=== PATIENT | female | born 2000 | race Caucasian/White ===

== ENCOUNTER 2021-03-21 21:01 | Emergency (ER) | payer OTHER, SELFPAY ==
--- NOTE | ~2021-03-21 | CT_ITS ---
EXAMINATION: CT brain wo con DATE: 03/21/2021 23:24 INDICATION: Headache. TECHNIQUE: Computed tomography (CT) of the head was performed without intravenous contrast. The mA wa s adjusted according to patient size. Iterative reconstruction technique was employed. The dose-lengt h product was 605.33 mGy-cm. COMPARISON: None FINDINGS: There is no intracranial hemorrhage, acute infarction, or abnormal intracranial mass lesion . The ventricles are normal in size. There is mild mucosal thickening in the ethmoid sinuses. The mas toid air cells are normal. The orbits are normal. IMPRESSION: 1. Normal brain. Reviewed, dictated and finalized at location B. [employer] IMPRESSION: 1. Normal brain.
[2021-03-21 21:15] VITALS: BP 145/106; PULSE 89; O2SAT 97
--- NOTE | 2021-03-21 21:18 | ED.HA ---
HPI - Headache General Chief Complaint: Headache Stated Complaint: migraine 7-8 days Time Seen by Provider: 03/21/21 21:04 Source: patient Mode of arrival: ambulatory Limitations: no limitations History of Present Illness HPI Narrative: 20-year-old woman comes in today complaining of 7 or 8 days is severe headache, top of her head. She states it is throbbing in nature. It is getting progressively worse. She denies photophobia, visual changes, nausea, vomiting, visual changes, head injuries, syncope, chest pain, recent cough or cold symptoms, sore throat. She states that she delivered a on 03/09 at [facility] in [place]. Was a vaginal without complication. Gestation was complicated by GDM managed by diet. She lives at home with her grandfather who has no symptoms. She states that she had a similar headache 1 or 2 years ago for which she did not seek out and it resolved spontaneously. MD elicited complaint: headache Onset (ago): day(s) (7-8) Onset description: gradually Location: diffuse and parietal Severity: severe Quality & Timing: throbbing Exacerbating factors: none Relieving factors: nothing Context: occurred at rest Associated symptoms: none Related Data Home Medications Medication Instructions Recorded Confirmed No Home Medications 03/21/21 03/21/21 Allergies Allergy/AdvReac Type Severity Reaction Status Date / Time No Known Allergies Allergy Verified 03/21/21 21:20 Review of Systems Review of Systems: All systems reviewed & are unremarkable except as noted in HPI and below Constitutional: Constitutional: Denies chills and Denies fever(s) Eyes: Eyes: Denies change in vision and Denies photophobia ENT: Denies nasal congestion and Denies sore throat Cardiovascular: Cardiovascular: Denies chest pain and Denies radiating jaw, neck or arm pain Respiratory: Respiratory: Denies cough and Denies dyspnea Gastrointestinal: Gastrointestinal: Denies abdominal pain, Denies nausea and Denies vomiting Musculoskeletal: Musculoskeletal: Denies back pain, Denies arthralgias and Denies joint swelling Integumentary/Breasts: Skin/Breast: Denies pruritus, Denies erythema and Denies rash Neurologic: Reports as per HPI, Denies vertigo, Denies dizziness, Denies syncope, Reports headache(s), Denies focal weakness, Denies numbness and Denies weakness [facility] Social History Social History (Updated 03/21/21 @ 21:49 by Dashawn Batista MD) Smoking status: Never smoker Alcohol intake: never Substance use type: marijuana Living arrangements: with family Exam Const: General: healthy appearing and alert Orientation/consciousness: patient oriented x3 Limitations: no limitations Other: Moderate acute distress. HENMT: Head: normal to inspection Ears: external ears normal, TM's normal bilaterally and EAC's normal General nose exam: Normal nares present Face and sinus: normal facial exam Mouth: Yes moist mucous membranes abnormal Throat: posterior oropharynx normal Eyes: Conjunctivae: conjunctivae normal Pupils: Equal, round and reactive pupils present EOM: EOMs intact bilaterally Neck: Neck: no meningeal signs Resp: Effort & Inspection: normal respiratory effort and not labored Auscultation: clear to auscultation bilaterally, no rales, no rhonchi and no wheezes Cardio: Rate: regular rate Rhythm: regular rhythm Heart sounds: no murmurs GI: GI Palp: Yes Soft to palpation, No Tenderness to palpation present (GI) and No Guarding due to palpation present (GI) Skin: General skin exam: normal color, no jaundice and no pallor Rashes: no rashes Neuro: General: patient oriented x3, moves all extremities, no focal motor deficits and CN's II-XI intact bilaterally Speech: normal speech Gait exam (Neuro): Normal gait present Other: Normal Romberg and bilateral [id number] testing. Extrem: General: normal to inspection and no clubbing, cyanosis or edema Psych: Appearance: grossly normal and w
[2021-03-21 21:22] VITALS: BP 145/106; PULSE 84; RESP 21; TEMP 36.3; O2SAT 96
[2021-03-21 21:30] VITALS: BP 142/103; PULSE 73; O2SAT 97
[2021-03-21 21:45] VITALS: BP 157/110; PULSE 71; O2SAT 98
[2021-03-21 22:15] LABS: Carboxyhemoglobin 3.4 % (0-1.5); HCO3 ABG 22.4 mmol/L (23-29); Methemoglobin ABG 0.1 % (0-1.5); Oxygen Content ABG 20.9 %vol (16.0-22.0); Oxyhemoglobin 94.6 % (94-100); PCO2 ABG 33.7 mmHg (35-45); PO2 ABG 108.9 mmHg (80-90); Reduced Hemoglobin 1.9 % (0-1.5); Total Hemoglobin 15.6 g/dL (12.0-18.0); pH ABG 7.44 (7.35-7.45)
[2021-03-21] MEDS: SODIUM CHLORIDE 0.9% IV 1,000 ML 999 ML IV CONT (22:25)
[2021-03-21 22:30] LABS: Basophils Absolute Auto 0.13 K/mm3 (0.00-0.10); Basophils Percent Auto 1.7 % (0.0-1.0); Eosinophils Absolute Auto 0.57 K/mm3 (0.02-0.50); Eosinophils Percent Auto 7.3 % (1.0-6.0); Hematocrit 49.5 % (35.0-49.0); Hemoglobin 16.2 g/dL (12.0-15.0); Immature Granulocyte Absolute 0.01 K/mm3 (0.00-0.00); Immature Granulocyte Percent A 0.1 % (0.0-0.0); Lymphocytes Absolute Auto 2.42 K/mm3 (1.10-4.50); Lymphocytes Percent Auto 30.9 % (18.0-42.0); Mean Corpuscular HGB Conc 32.7 g/dL (32.0-36.0); Mean Corpuscular Hemoglobin 29.3 pg (27.0-31.0); Mean Corpuscular Volume 89.7 fL (78.0-102.0); Mean Platelet Volume 10.9 fl (9.2-11.8); Monocytes Absolute Auto 0.46 K/mm3 (0.10-0.90); Monocytes Percent Auto 5.9 % (2.0-11.0); Neutrophils Absolute Auto 4.2 K/mm3 (1.7-7.2); Neutrophils Percent Auto 54.1 % (50.0-70.0); Platelet Count Result 245 K/mm3 (150-420); Red Blood Count 5.52 M/mm3 (4.20-5.40); Red Cell Distribution Width 12.1 % (11.6-14.4); White Blood Count 7.8 K/mm3 (4.8-10.8)
[2021-03-21 22:34] LABS: Device ROOM AIR; Modified Allen's Test Pass; Site Drawn LEFT RADIAL
[2021-03-21 22:42] LABS: Alanine Aminotransferase 15 U/L (14-59); Albumin Level 3.6 g/dL (3.4-5.0); Alkaline Phosphatase 110 U/L (50-130); Anion Gap 14 mmol/L (8-16); Aspartate Amino Transferase 13 U/L (15-37); Bilirubin,Total 0.3 mg/dL (0.00-1.00); Blood Urea Nitrogen 12 mg/dL (7-18); CRP < 0.5 mg/dL (0.0-0.9); Calcium 9.4 mg/dL (8.5-10.1); Carbon Dioxide 24 mmol/L (21-32); Chloride 103 mmol/L (98-108); Estimated Glomerular Filt Rate > 60; Glucose 87 mg/dL (70-99); Osmolality Calculated 290 mOsm/kg (285-295); SPREG INTERNAL CONTROL Positive; Serum Qual hCG Positive; Sodium 141 mmol/L (136-145); Total Protein 7.8 g/dL (6.4-8.2)
[2021-03-21 22:52] LABS: Add Urine Microscopic? YES; Bilirubin Urine Negative (Negative); Blood Urine 2+ (Negative); Color Urine Light Yellow (Yellow); Glucose Urine UA Negative (Negative); Ketones Urine Negative (Negative); Leukocyte Esterase Ur 1+ (Negative); Nitrate Urine Negative (Negative); Protein Urine Negative (Negative); Specific Grav Ur 1.015 (1.010-1.020); Urobilinogen Urine 0.2 mg/dL (0.2-1.0); pH Urine 7.5 (5.0-8.0)
[2021-03-21 23:05] LABS: Squamous Epithelial Cell Urine Few /hpf (Few); WBC Clumps Urine Present /hpf
[2021-03-21 23:06] LABS: Appearance Urine Sl Cloudy (Clear); Bacteria Urine 1+ /hpf
[2021-03-21] MEDS: PROMETHAZINE HCL 25 MG/ML AMPUL IM (23:14)
--- NOTE | 2021-03-21 23:47 | PC.NURSE ---
Call placed to [facility] outreach center per protocol, spoke c transfer center and will await callback from FLORA ODOM.
[2021-03-21] MEDS: HYDROmorphone HCL INJ (*CRX) 2 MG/ML VIAL 0.5 MG IV PUSH (23:51)
[2021-03-22] MEDS: MAGNESIUM SULF 4 GM/WATER100ML 4 GM/100 ML BAG IVPB ×2 (00:12→01:09)
--- NOTE | 2021-03-22 00:31 | PC.NURSE ---
Contacted [facility], spoke with Angel, pharmacist concerning the magnesium sulfate infusion. Angel informed me that a magnesium sulfate 4Gram/100ml dose can be run at 50ml/hour. Angel informed me that he will enter the order. Md Batista updated concerning the magnesium sulfate infusion.,
--- NOTE | 2021-03-22 01:33 | PC.NURSE ---
report given to BALBIR See from [facility] maternal OB transport.
[2021-03-22] MEDS: METOCLOPRAMIDE HCL INJ 10 MG/2 ML VIAL IV PUSH (01:43)
[2021-03-22] MEDS: diphenhydrAMINE HCl INJ 50 MG/ML VIAL 25 MG IV PUSH (01:44)
[2021-03-22 02:04] LABS: SARS-CoV-2 Ag Negative (Negative)
[2021-03-22 02:05] VITALS: BP 144/102; PULSE 96; RESP 17; TEMP 36.4; O2SAT 100
== END 2021-03-22 01:52 | disposition short-term general hospital (02) ==
PROVIDERS: Emergency Provider Emergency Medicine
DX: G44.89 Other headache syndrome (principal); I10 Essential (primary) hypertension; Z20.822 Contact with and (suspected) exposure to COVID-19
CPT/HCPCS: 36415; 36600; 70450; 80053; 81001; 82375; 82805; 83050; 84702; 84703; 85025; 86140; 87426; 96361; 96365; 96366; 96372; 96374; 96375; 99285; C9803; J1170; J1200; J2550; J2765; J3475; J7030

== ENCOUNTER 2023-07-28 23:56 | Emergency (ER) | payer OTHER, SELFPAY ==
[2023-07-29] VITALS: BP 118/76; PULSE 92; RESP 20; TEMP 36.9; O2SAT 99
--- NOTE | 2023-07-29 00:12 | ED.ABDPAIN ---
HPI - Abdominal Pain General Chief Complaint: Abdominal Pain Stated Complaint: ABD PAIN Time Seen by Provider: 07/29/23 00:10 Source: patient Mode of arrival: ambulatory Limitations: no limitations History of Present Illness HPI narrative: 23-year-old female, smoker marijuana user presents to the ER with an 8 hour history of -- epigastric pain which is persistent. No radiation of the pain. No exacerbating or relieving factors. Patient has nausea without any vomiting. No fever or chills. No history of NSAIDs or alcohol use. MD elicited complaint: other ( Epigastric pain) Pertinent past history: none Onset (ago): hour(s) ( 8 hours) Pain Consistency: constant Location: epigastric Severity: severe Quality: aching Radiation: none Exacerbating factors: nothing Relieving factors: nothing Related Data Allergies Allergy/AdvReac Type Severity Reaction Status Date / Time No Known Allergies Allergy Verified 03/21/21 21:20 Review of Systems Review of Systems: All systems reviewed & are unremarkable except as noted in HPI and below Constitutional: Constitutional: Reports as per HPI and Reports no additional constitutional complaints Eyes: Eyes: Reports as per HPI and Reports no additional eye complaints ENT: Reports system reviewed and no additional complaints, except as documented and Reports as per HPI Cardiovascular: Cardiovascular: Reports as per HPI and Reports no additional cardiovascular complaints Respiratory: Respiratory: Reports as per HPI and Reports no additional respiratory complaints Gastrointestinal: Gastrointestinal: Reports as per HPI, Reports no additional gastrointestinal complaints, Reports abdominal pain and Reports nausea Genitourinary: Genitourinary: Reports no additional female genitourinary complaints Comments: LMP 06/26/2023 Musculoskeletal: Musculoskeletal: Reports no additional musculoskeletal complaints and Reports as per HPI Integumentary/Breasts: Skin/Breast: Reports system reviewed and no additional complaints, except as docu and Reports as per HPI Neurologic: Reports system reviewed and no additional complaints, except as documented and Reports as per HPI Psychiatric: Psychiatric: Reports no additional psychiatric complaints and Reports as per HPI Endocrine: Endocrine: Reports no additional endocrine complaints and Reports as per HPI Hematologic/Lymphatic: Hematologic/Lymphatic: Reports no additional hematologic/lymphatic complaints and Reports as per HPI Allergic/Immunologic: Allergic/Immunologic: Reports no additional allergic/immunologic complaints and Reports as per HPI [facility] Social History Social History Smoking status: Never smoker Alcohol intake: never Substance use type: marijuana Living arrangements: with family Exam Const: General: ill appearing Nutritional Appearance: thin Orientation/consciousness: patient oriented x3 Limitations: no limitations HENMT: Head: normal to inspection Ears: external ears normal Face/Nose/Sinus: Normal external nose present Mouth: Yes Normal oral and palatal mucosa present Throat: posterior oropharynx normal Eyes: Conjunctivae: conjunctivae normal Pupils: Equal, round and reactive pupils present EOM: EOMs intact bilaterally Direct Ophthalmoscopy: no photophobia Neck: Neck: normal visual inspection, no lymphadenopathy and no meningeal signs Chest: Chest palpation & inspection: normal inspection of the chest Resp: Effort & Inspection: normal respiratory effort Auscultation: clear to auscultation bilaterally Cardio: Rate: regular rate Rhythm: regular rhythm GI: GI Palp: Yes Soft to palpation Other: epigastric tenderness without any rigidity / rebound. Back/Spine/Pelvis: Back: no CVA tenderness Skin: Other: Multiple 1-2 cm healed scars all over her body Neuro: General: patient oriented x3, moves all extremities, no meningeal signs,
[2023-07-29] MEDS: LACTATED RINGERS 1,000 ML 999 ML IV CONT (00:40)
[2023-07-29] MEDS: PANTOPRAZOLE SODIUM IV 40 MG VIAL IV PUSH (00:40)
[2023-07-29] MEDS: MORPHINE SULFATE (*CRX) 2 MG/ML INJ IV PUSH (00:40)
[2023-07-29] MEDS: PROCHLORPERAZINE EDISYLATE 10 MG/2 ML VIAL IV PUSH (00:44)
[2023-07-29 00:51] LABS: Basophils Absolute Auto 0.04 K/mm3 (0.00-0.10); Basophils Percent Auto 0.5 % (0.0-1.0); Eosinophils Absolute Auto 0.21 K/mm3 (0.02-0.50); Eosinophils Percent Auto 2.7 % (1.0-6.0); Hematocrit 38.9 % (35.0-49.0); Hemoglobin 12.6 g/dL (12.0-15.0); Immature Granulocyte Absolute 0.02 K/mm3 (0.00-0.00); Immature Granulocyte Percent A 0.3 % (0.0-0.0); Lymphocytes Percent Auto 34.8 % (18.0-42.0); Mean Corpuscular HGB Conc 32.4 g/dL (32-36); Mean Corpuscular Hemoglobin 27.9 pg (27.0-31.0); Mean Corpuscular Volume 86.3 fL (78.0-102.0); Monocytes Absolute Auto 0.64 K/mm3 (0.10-0.90); Monocytes Percent Auto 8.3 % (2.0-11.0); Neutrophils Absolute Auto 4.14 K/mm3 (1.70-7.20); Neutrophils Percent Auto 53.4 % (50.0-70.0); Platelet Count Result 202 K/mm3 (150-420); Red Blood Count 4.51 M/mm3 (4.20-5.40); Red Cell Distribution Width 15.4 % (11.6-14.4); White Blood Count 7.8 K/mm3 (4.8-10.8)
[2023-07-29 00:59] LABS: Appearance Urine Clear (Clear); Bilirubin Urine Negative (Negative); Blood Urine Negative (Negative); Color Urine Yellow (Yellow); Glucose Urine UA Negative (Negative); Ketones Urine Trace (Negative); Leukocyte Esterase Ur 1+ LEU/UL (Negative); Nitrate Urine Negative (Negative); Protein Urine Negative (Negative); Specific Grav Ur >= 1.030 (1.010-1.020); Urobilinogen Urine 0.2 mg/dL (0.2-1.0)
[2023-07-29 01:04] LABS: Prothrombin Time 11.2 Seconds (9.50-12.1)
[2023-07-29 01:20] LABS: Pregnancy On Board Control Positive; Urine Pregnancy Test Negative
[2023-07-29 01:31] LABS: Add Urine Microscopic? YES; Bacteria Urine 3+ /hpf; RBC Urine 0-2 /hpf (0-2); Squamous Epithelial Cell Urine Many /hpf (Few)
[2023-07-29 01:36] VITALS: BP 100/60; PULSE 60; RESP 16; O2SAT 99
--- NOTE | 2023-07-29 01:37 | PC.NURSE ---
Pt and s.o. instructed on POC and wait times due to chemistry machine down. Pt sleeping, arousable to slight pain and voice p given pain meds. VSS, awaiting labs before CT can be done. Pt and s.o. aware of POC.
[2023-07-29 01:46] LABS: Alanine Aminotransferase 10 U/L (6-35); Alkaline Phosphatase 47 U/L (38-126); Anion Gap 5 mmol/L (4-12); Aspartate Amino Transferase 30 U/L (14-36); Bilirubin,Total 0.8 mg/dL (0.2-1.3); Blood Urea Nitrogen 13 mg/dL (7-17); Calcium 9.2 mg/dL (8.4-10.2); Carbon Dioxide 26 mmol/L (22-30); Chloride 107 mmol/L (98-107); Estimated CRCL calculation 75 ml/min; Estimated Glomerular Filt Rate > 60; Glucose 89 mg/dL (65-110); Osmolality Calculated 285 mOsm/kg (285-295); Potassium 3.8 mmol/L (3.4-5.0); Sodium 138 mmol/L (137-145)
--- NOTE | 2023-07-29 02:10 | PC.NURSE ---
Pt very obrtunded and unable to arouse or awaken fully p given Morphine, she will awaken only to painful stimuli and then fall back asleep again. Order from ERP to give Narcan.
[2023-07-29] MEDS: NALOXONE HCL 0.4 MG/ML VIAL 0.2 MG IV PUSH (02:13)
--- NOTE | 2023-07-29 02:16 | PC.NURSE ---
Pt awake after given narcan and more responsive, she is able to sit up, GCS 15. Pt answereing questions. ERP in to explain POC for d/c home w/ lab results given to pt and s.o.
[2023-07-29] MEDS: SULFAMETHOXAZOLE/TRIMETHOPRIM 800/160 MG DS TABLET 1 TAB PO (02:30)
[2023-07-29 02:40] VITALS: BP 110/62; PULSE 64; RESP 20; TEMP 36.6; O2SAT 98
[2023-07-29 11:25] LABS: Albumin Level 4.4 g/dL (3.5-5.1)
--- NOTE | 2023-07-31 12:42 | PC.NURSE ---
Final urine culture report: Mixed genital dario isolated, no further action or treatment needed per Dr. Chinchilla.
== END 2023-07-29 02:40 | disposition home or self-care (01) ==
PROVIDERS: Emergency Provider Internal Medicine Critical Care Medicine; PCP Family Medicine
DX: N39.0 Urinary tract infection, site not specified (principal); R10.13 Epigastric pain; F12.90 Cannabis use, unspecified, uncomplicated
CPT/HCPCS: 36415; 80053; 81001; 81025; 83605; 85025; 85610; 87086; 87088; 96361; 96374; 96375; 99284; A9270; C9113; J0780; J2270; J2310; J7120

== ENCOUNTER 2023-08-07 13:13 | Emergency (ER) | payer OTHER, SELFPAY ==
[2023-08-07 13:13] VITALS: BP 120/79; PULSE 104; RESP 20; TEMP 37.2; O2SAT 97
[2023-08-07] MEDS: LIDOCAINE HCL 1% LOCAL INJ 10 ML VIAL INFILTRATE (13:40)
[2023-08-07] MEDS: TETANUS,DIPHTHERIA,AC PERTUSSIS ADULT 0.5 ML (ADACEL) IM (13:41)
--- NOTE | 2023-08-07 14:03 | ED.WOUNDLAC ---
HPI - Wound/Laceration General Chief Complaint: Wound/Laceration Stated Complaint: leg laceration Time Seen by Provider: 08/07/23 13:29 Source: patient Mode of arrival: ambulatory Limitations: no limitations History of Present Illness HPI narrative: this is a 23-year-old. Has a gaping laceration to the posterior right leg after she got caught on a throwing I have better partner had was accidental or a posterior right knee area currently not bleeding and not up-to-date with her tetanus. Onset (ago): hour(s) Location: other Extremity Location: Left: lower leg ( laceration posterior right leg) Place: home Patient tetanus UTD: No Context: accidental Related Data Allergies Allergy/AdvReac Type Severity Reaction Status Date / Time No Known Allergies Allergy Verified 08/07/23 13:35 Review of Systems Review of Systems: All systems reviewed & are unremarkable except as noted in HPI and below PMFSH Past Medical History Medical History Patient denies medical problems Social History Social History Smoking status: Never smoker Alcohol intake: never Substance use type: marijuana Living arrangements: with family Exam Const: General: healthy appearing Nutritional Appearance: well nourished Orientation/consciousness: patient oriented x3 Limitations: no limitations Neck: Neck: normal visual inspection, no lymphadenopathy and no meningeal signs Chest: Chest palpation & inspection: normal inspection of the chest Resp: Effort & Inspection: normal respiratory effort Auscultation: clear to auscultation bilaterally Cardio: Rate: regular rate Rhythm: regular rhythm GI: GI Palp: Yes Soft to palpation Auscultation: normal bowel sounds Skin: Other: 5cm gaping laceration posterior right knee Course Course Emergency Course: patient updated with her tetanus and 9 sutures placed patient tolerated procedure well. Vital Signs Vital signs: Vital Signs Temperature 37.2 C 08/07/23 13:13 Pulse Rate 104 H 08/07/23 13:13 Respiratory Rate 20 08/07/23 13:13 Blood Pressure 120/79 08/07/23 13:13 Pulse Oximetry 97 08/07/23 13:13 Oxygen Delivery Room Air 08/07/23 13:13 Temperature 37.2 C 08/07/23 13:13 Pulse Rate 104 H 08/07/23 13:13 Respiratory Rate 20 08/07/23 13:13 Blood Pressure 120/79 08/07/23 13:13 Pulse Oximetry 97 08/07/23 13:13 Oxygen Delivery Room Air 08/07/23 13:13 Procedures Laceration Laceration 1: Date: 08/07/23 Time: 14:06 Site: lower extremity Side (If applicable): right Size (cm): 5 Description: linear Depth: simple, single layer Local Anesthetic: lidocaine 1% Amount of anesthesia used (mL): 8 Pre-repair: wound explored and irrigated ====== Skin Level ====== Skin layer closed with: vicryl Size (cm): 3-0 Number of sutures: 9 Technique: simple, interrupted ====== Subcutaneous Layer ====== ====== Muscle Layer ====== ====== Tendon Layer ====== Critical Care Time Critical Care Time Critical Care Time: No Discharge Plan Discharge Clinical Impression: Laceration Patient Disposition: Home, Self-Care Condition: Stable Instructions: Antibiotic Form, Laceration (ED) Additional Instructions: Advised follow-up in 1 week for suture removal. Can use Tylenol or Motrin as needed and Neosporin daily x3 days. Prescriptions: No Action sulfamethoxazole-trimethoprim [Bactrim DS] 800-160 mg tablet 1 tablet PO Q12H Qty: 7 0RF famotidine [Pepcid] 20 mg tablet 20 mg PO BID Qty: 30 0RF Follow-up/Referrals: Manny Blackburn M.D. [Primary Care Provider] - Time of Disposition: 14:07
[2023-08-07 14:15] VITALS: BP 118/75; PULSE 90; RESP 20; TEMP 36.6; O2SAT 99
== END 2023-08-07 14:15 | disposition home or self-care (01) ==
PROVIDERS: Emergency Provider Emergency Medicine; PCP Family Medicine
DX: S81.811A Laceration without foreign body, right lower leg, initial encounter (principal); W45.8XXA Other foreign body or object entering through skin, initial encounter; Z23 Encounter for immunization
CPT/HCPCS: 12002; 90471; 90715; 99282

== ENCOUNTER 2024-04-07 16:30 | Inpatient (IN) | payer OTHER, SELFPAY ==
[2024-04-07] VITALS (15 sets, daily range): BP systolic 103–150; BP diastolic 71–128; PULSE 61–119; RESP 16; TEMP 37.1; O2SAT 98–100; BMI 23.6
--- OUTSIDE RECORDS SUMMARY | 2024-04-07 16:46 | XMS_ITS | Patient Health Summary ---
Author Organization [facility] Address [address] [place] [address] Care Team Providers Care Forming Department End Finder Name Role Phone Shelley Angel MSW Unavailable Unavailable Note from [facility],non-owned Affiliates and Associated Physician Practices is amultiple site organization consisting of ambulatory clinics and hospital sitesin [place], [place], [place] and [place]. This disclosure is being madepursuant to the Care Everywhere program and may not contain all information available regarding this patient. Last updated 17.[facility] Allergies No known active allergies Medications * Be aware that medications may not be up to date on this document. Alwaysverify current medications with the patient. * albuterol HFA (PROVENTIL;VENTOLIN;PROAIR) 108 (90 Base) MCG/ACT inhaler (Started 01/05/2021) Inhale 2 (two) puffs by mouth every 6 hours as needed for Shortness of Breath or Wheezing Reasons: Asthma 1 refill by 01/05/2022 * nicotine (NICODERM CQ) 14 MG/24HR patch(Started 01/05/2021) Apply 1 (one) patch to skin once daily Reasons: Nicotine Addiction 1 refill by 01/05/2022 * Vit-Fe Fumarate-FA (SM VITAMINS) 28-0.8 MG TABS(Started 01/05/2021) Take 1 tablet by mouth once daily Reasons: 11 refills by 01/05/2022 * blood glucose (ONETOUCH VERIO) test strip(Started 01/05/2021) To monitor blood glucose (sugar) 4x daily- fasting and 1 hour after meals 5 refills by 01/05/2022 * Lancets (ONETOUCH DELICA PLUS 33G EXTRA FINE LANCET)(Started 01/05/2021) To monitor blood glucose (sugar) 4x daily- fasting and 1 hour after meals 5 refills by 01/05/2022 * hydrocortisone (CORTISONE -5) 0.5 % cream(Started 01/12/2021) Apply to affected area 4 times daily Active Problems Problem Noted Date Diagnosed Date 34 weeks gestation of 02/03/2021 Maculopapular rash 01/12/2021 complicated by tobacco use in third tr imester 01/12/2021 Gestational diabetes 12/28/2020 Methamphetamine use disorder, severe 12/16/2020 Marijuana use 12/16/2020 Asthma 12/16/2020 Anxiety 12/16/2020 Supervision of high-risk of young prim igravida 12/15/2020 Resolved Problems Problem Noted Date Diagnosed Date Resolved Date Abnormal O'Chávez glucose challenge test, antepartum 12/16/2020 12/28/2020 Immunizations * Covid Raspberry Pi Foundation primary monovalent 12+ yr 0.3mL Purple cap(Given 02/01/2021, 01/12/2021) * DTaP VACCINE IM (6wk-6yrs)(Given 11/02/2004, 03/19/2003, 06/19/2002, 2001) * HEP A PEDS 2 DOSE(Given 11/25/2015, 11/06/2012) * HEP B VACCINE, PED/ADOL(Given 03/19/2003) * HIB Hep B(Given 06/19/2002, 2001) * HIB-HAEMOPHILUS INFLUENZAE B CONJUGATE VACCINE(Given 03/19/2003) * Human Papilloma Virus Ninevalent Vaccine(Given 11/25/2015) * Human Papilloma Virus Quadrivalent Vaccine(Given 01/01/2013, 11/06/2012) * INFLUENZA VACCINE, QUADR. (FLUZONE; FLULAVAL; FLUARIX; AFLURIA QUADRIVALENT; 6MO+), 0.5 ML (IIV4)(Given 01/12/2021) * MENINGOCOCCAL CONJUGATE (MCV4P)(Given 11/06/2012) * MMR(Given 06/19/2002) * PNEUMOCOCCAL PCV7 CONJ, PEDS(Given 03/19/2003, 06/19/2002, 2001) * POLIO IPV(Given 03/19/2003, 06/19/2002, 2001) * TDAP (7yrs+)(Given 12/16/2020, 11/06/2012) * VARICELLA(Given 11/06/2012, 11/02/2004) Social History Tobacco Use Types Packs/Day Years Used Date Smoking Tobacco: Every Day Cigarettes 0.5 9 Smokeless Tobacco: Never Alcohol Use Standard Drinks/Week Comments Not Currently 0 (1 standard drink = 0.6 oz pur e alcohol) Sex and Gender Information Value Date Recorded Sex Assigned at Not on file Gender Identity Not on file Sexual Orientation Not on file Last Filed Vital Signs Vital Sign Reading Time Taken Comments Blood Pressure 99/60 02/01/2021 1:07 PM ELECTRIC TRUCK CRANE OPERATOR Pulse 103 02/01/2021 1:07 PM ELECTRIC TRUCK CRANE OPERATOR Temperature 36.7 ??C (98 ??F) 02/01/2021 1:07 PM ELECTRIC TRUCK CRANE OPERATOR Respiratory Rate 18 02/01/2021 1:07 PM ELECTRIC TRUCK CRANE OPERATOR Oxygen Saturation 98% 02/01/2021 1:07 PM ELECTRIC TRUCK CRANE OPERATOR Inhaled Oxygen Concentration - - Weight 67.6 kg (149 lb) 02/01/2021 1:07 PM ELECTRIC TRUCK CRANE OPERATOR Height 161.3 cm (5' 3.5 ) 12/16/2020 9:02 AM CDT Body Mass Index 25.98 12/16/2020 9:02 AM CDT Procedures * GLUCOSE PROTEIN KETONE URINE - POINT OF CAR(Performed 02/01/2021) Performed for Supervision of high-risk of young primigravida ([facility]) * URINE DRUG SCREEN IMMUNOASSAY(Performed 02/01/2021) Performed for Supervision of high-risk of young primigravida ([facility]) * CULTURE STREP GROUP A(Performed 01/25/2021) Performed for Supervision of high-risk of young primigravida ([facility]), Sore throat * STREP A SCREEN DIRECT W RFLX STREP A CULTURE(Performed 01/25/2021) Performed for Supervision of high-risk of young primigravida ([facility]), Sore throat * RESPIRATORY PANEL WITH SARS-COV-2 BY PCR (STL)(Performed 01/25/2021) Performed for Supervision of high-risk of young primigravida ([facility]), Cough * GLUCOSE PROTEIN KETONE URINE - POINT OF CAR(Performed 01/25/2021) Performed for Supervision of high-risk of young primigravida (HCC) * URINE DRUG SCREEN IMMUNOASSAY(Performed 01/25/2021) Performed for Supervision of high-risk of young primigravida (HCC) * GLUCOSE PROTEIN KETONE URINE - POINT OF CAR(Performed 01/18/2021) Performed for Supervision of high-risk of young primigravida (HCC) * URINE DRUG SCREEN IMMUNOASSAY(Performed 01/18/2021) Performed for Supervision of high-risk of young primigravida (HCC) * SONOGRAM - COMPLETE(Performed 01/12/2021) * GLUCOSE PROTEIN KETONE URINE - POINT OF CAR(Performed 01/12/2021) Performed for Supervision of high-risk of young primigravida (HCC) * URINE DRUG SCREEN IMMUNOASSAY(Performed 01/12/2021) Performed for Supervision of high-risk of young primigravida (HCC) * GLUCOSE PROTEIN KETONE URINE - POINT OF CAR(Performed 01/05/2021) Performed for Methamphetamine use disorder, severe (HCC), Supervision of high- risk of young primigravida (HCC) * URINE DRUG SCREEN IMMUNOASSAY(Performed 01/05/2021) Performed for Methamphetamine use disorder, severe (HCC), Supervision of high- risk of young primigravida (HCC) * GTT 3 HR (100G) GESTATIONAL DIAGNOSTIC(Performed 12/28/2020) Performed for Supervision of high-risk of young primigravida (HCC) * GLUCOSE PROTEIN KETONE URINE - POINT OF CAR(Performed 12/28/2020) Performed for Supervision of high-risk of young primigravida (HCC), Methamphetamine use disorder, severe (HCC) * URINE DRUG SCREEN IMMUNOASSAY(Performed 12/28/2020) Performed for Supervision of high-risk of young primigravida (HCC), Methamphetamine use disorder, severe (HCC) * TRICHOMONAS VAGINALIS AMPLIFIED PROBE(Performed 12/16/2020) Performed for Supervision of high-risk of young primigravida (HCC) * CHLAMYDIA + GC AMPLIFIED PROBE(Performed 12/16/2020) Performed for Supervision of high-risk of young primigravida (HCC) * CULTURE URINE(Performed 12/16/2020) Performed for Supervision of high-risk of young primigravida ([facility]) * TYPE + SCREEN PANEL(Performed 12/16/2020) Performed for Supervision of high-risk of young primigravida (HCC) * RUBELLA ANTIBODY IGG(Performed 12/16/2020) Performed for Supervision of high-risk of young primigravida (HCC) * SYPHILIS ANTIBODY CASCADING REFLEX(Performed 12/16/2020) Performed for Supervision of high-risk of young primigravida (HCC) * CBC W AUTO DIFFERENTIAL(Performed 12/16/2020) Performed for Supervision of high-risk of young primigravida (HCC) * HEPATITIS B SURFACE ANTIGEN W RFLX CONFIRMATION(Performed 12/16/2020) Performed for Supervision of high-risk of young primigravida (HCC) * HEPATITIS C ANTIBODY(Performed 12/16/2020) Performed for Supervision of high-risk of young primigravida (HCC) * HEPATITIS B SURFACE ANTIGEN W RFLX CONFIRMATION(Performed 12/16/2020) Performed for Supervision of high-risk of young primigravida (HCC) * HIV-1 HIV-2 ANTIBODY + HIV P24 AG PANEL(Performed 12/16/2020) Performed for Supervision of high-risk of young primigravida (HCC) * CYSTIC FIBROSIS MUTATION PANEL(Performed 12/16/2020) Performed for Supervision of high-risk of young primigravida (HCC) * GLUCOSE CHALLENGE(Performed 12/16/2020) Performed for Supervision of high-risk of young primigravida (HCC) * COMPREHENSIVE METABOLIC PANEL(Performed 12/16/2020) Performed for Supervision of high-risk of young primigravida (HCC) * SONOGRAM - COMPLETE(Performed 12/16/2020) Performed for Supervision of high-risk of young primigravida (HCC) * GLUCOSE PROTEIN KETONE URINE - POINT OF CAR(Performed 12/16/2020) Performed for Supervision of high-risk of young primigravida (HCC) * URINE DRUG SCREEN IMMUNOASSAY(Performed 12/16/2020) Performed for Supervision of high-risk of young primigravida (HCC) Results * GLUCOSE PROTEIN KETONE URINE - POINT OF CARE (02/01/2021 1:10 PM ELECTRIC TRUCK CRANE OPERATOR) Only the most recent of7 resultswithin the time period is included. Glucose UA negative Negative [facility] Protein UA negative Negative [facility] Ketone UA negative Negative [facility] QC Verified Yes Yes [facility] POC T TESTING Urine URINE / Unknown 02/01/2021 1 :10 PM ELECTRIC TRUCK CRANE OPERATOR Hortensia Medellin MINIATURE SET DESIGNER-CAR HEAD LINER INSTALLER LAB - POINT O F CARE ORDERABLES [facility] [address] [phone] * URINE DRUG SCREEN IMMUNOASSAY (02/01/2021 1:08 PM ELECTRIC TRUCK CRANE OPERATOR) Only the most recent of7 resultswithin the time period is included. [facility] Amphetamines Screen Urine Not detected Not detected 02/01/2021 2:43 PM ELECTRIC TRUCK CRANE OPERATOR [facility] Barbiturates Screen Urine Not detected Not detected 02/01/2021 2:43 PM ELECTRIC TRUCK CRANE OPERATOR [facility] Benzodiazepines Screen Urine Not detected Not detected 02/01/2021 2:43 PM ELECTRIC TRUCK CRANE OPERATOR [facility] Cannabinoids Screen Urine Not detected Not detected 02/01/2021 2:43 PM ELECTRIC TRUCK CRANE OPERATOR [facility] Cocaine Screen Urine Not detected Not detected 02/01/2021 2:43 PM ELECTRIC TRUCK CRANE OPERATOR [facility] Fentanyl Urine Not detected Not detected 02/01/2021 2:43 PM ELECTRIC TRUCK CRANE OPERATOR [facility] Methadone Screen Urine Not detected Not detected 02/01/2021 2:43 PM ELECTRIC TRUCK CRANE OPERATOR [facility] Opiate Screen Urine Not detected Not detected 02/01/2021 2:43 PM ELECTRIC TRUCK CRANE OPERATOR [facility] Phencyclidine Screen Urine Not detected Not detected 02/01/2021 2:43 PM ELECTRIC TRUCK CRANE OPERATOR [facility] Urine URINE / Unknown Collection / Unknown 02/01/2021 1:08 PM ELECTRIC TRUCK CRANE OPERATOR 02/01/2021 1:56 PM ELECTRIC TRUCK CRANE OPERATOR Narrative [facility] - 02/01/2021 2:43 PM ELECTRIC TRUCK CRANE OPERATOR This drug screen is designed for MEDICAL purposes only. It is not to be used for legal purposes, including but not limited to worker's comp, police investigations, occupational issues, child custody, etc. ??Any positive result is only presumptive and must be confirmed with a separate confirmatory test ordered by the physician. Drug Screening Test Cutoff Values: AMPHETAMINES ?1000 ng/mL BARBITURATES ? 200 ng/mL BENZODIAZEPINES ?200 ng/mL CANNABINOIDS(THC) ?? 50 ng/mL COCAINE ?300 ng/mL FENTANYL ? 1 ng/mL METHADONE ?300 ng/mL OPIATES ?300 ng/mL PHENCYCLIDINE(PCP) ??25 ng/mL Hortensia Medellin APRN-CAR HEAD LINER INSTALLER LAB - URINE C HEMISTRY ORDERABLES Performing Organization Address [facility] de Phone Number [facility] [address] [place] [phone] * STREP A SCREEN DIRECT W RFLX STREP A CULTURE (01/25/2021 12:20 PM ELECTRIC TRUCK CRANE OPERATOR) Strep A Rapid Negative Negative 01/25/2021 12:57 PM ELECTRIC TRUCK CRANE OPERATOR [facility] Microbiology ENTIRE THROAT (SURFACE REGION OF NECK) / Unknown Collection / Unknown 01/25/2021 12:20 PM ELECTRIC TRUCK CRANE OPERATOR 01/25/2021 12:36 PM ELECTRIC TRUCK CRANE OPERATOR Narrative [facility] - 01/25/2021 12:57 PM ELECTRIC TRUCK CRANE OPERATOR Test has reflexed to a Strep A culture. Karen Jensen MINIATURE SET DESIGNER-CAR HEAD LINER INSTALLER LAB - MICROBIOL OGY ORDERABLES Performing Organization Address [facility] de Phone Number [facility] [address] [place] [phone] * CULTURE STREP GROUP A (01/25/2021 12:20 PM ELECTRIC TRUCK CRANE OPERATOR) Culture Negative for beta-hemolytic Streptococcus Group A PETE 01/27/2021 6:45 AM ELECTRIC TRUCK CRANE OPERATOR [facility] Microbiology ENTIRE THROAT (SURFACE REGION OF NECK) / Unknown Collection / Unknown 01/25/2021 12:20 PM ELECTRIC TRUCK CRANE OPERATOR 01/25/2021 12:36 PM ELECTRIC TRUCK CRANE OPERATOR Karen Jensen MINIATURE SET DESIGNER-CAR HEAD LINER INSTALLER LAB - MICROBIOL OGY ORDERABLES [facility] [address] [place], [place] [address], [facility] [phone] * RESPIRATORY PANEL WITH SARS-COV-2 BY PCR (STL) (01/25/2021 11:31 AM ELECTRIC TRUCK CRANE OPERATOR) Adenovirus PCR Not detected Not detected 01/25/2021 3:38 PM ELECTRIC TRUCK CRANE OPERATOR [facility] Coronavirus 229E PCR Not detected Not detected 01/25/2021 3:38 PM ELECTRIC TRUCK CRANE OPERATOR [facility] Coronavirus HKU1 PCR Not detected Not detected 01/25/2021 3:38 PM ELECTRIC TRUCK CRANE OPERATOR [facility] Coronavirus NL63 PCR Not detected Not detected 01/25/2021 3:38 PM ELECTRIC TRUCK CRANE OPERATOR [facility] Coronavirus OC43 PCR Not detected Not detected 01/25/2021 3:38 PM ELECTRIC TRUCK CRANE OPERATOR [facility] COVID-19 PCR Not detected Not detected 01/25/2021 3:38 PM ELECTRIC TRUCK CRANE OPERATOR [facility] Human Metapneumovirus PCR Not detected Not detected 01/25/2021 3:38 PM ELECTRIC TRUCK CRANE OPERATOR [facility] Human Rhinovirus/Enterov irus PCR Not detected Not detected 01/25/2021 3:38 PM ELECTRIC TRUCK CRANE OPERATOR [facility] Influenza A PCR Not detected Not detected 01/25/2021 3:38 PM ELECTRIC TRUCK CRANE OPERATOR [facility] Influenza B PCR Not detected Not detected 01/25/2021 3:38 PM ELECTRIC TRUCK CRANE OPERATOR [facility] Parainfluenza Virus 1 PCR Not detected Not detected 01/25/2021 3:38 PM ELECTRIC TRUCK CRANE OPERATOR [facility] Parainfluenza Virus 2 PCR Not detected Not detected 01/25/2021 3:38 PM ELECTRIC TRUCK CRANE OPERATOR [facility] Parainfluenza Virus 3 PCR Not detected Not detected 01/25/2021 3:38 PM ELECTRIC TRUCK CRANE OPERATOR [facility] Parainfluenza Virus 4 PCR Not detected Not detected 01/25/2021 3:38 PM ELECTRIC TRUCK CRANE OPERATOR [facility] Respiratory Syncytial Virus PCR Not detected Not detected 01/25/2021 3:38 PM ELECTRIC TRUCK CRANE OPERATOR [facility] Bordetella parapertussis PCR Not detected Not detected 01/25/2021 3:38 PM ELECTRIC TRUCK CRANE OPERATOR [facility] Bordetella pertussis PCR Not detected Not detected 01/25/2021 3:38 PM ELECTRIC TRUCK CRANE OPERATOR [facility] Chlamydia pneumoniae PCR Not detected Not detected 01/25/2021 3:38 PM ELECTRIC TRUCK CRANE OPERATOR [facility] Mycoplasma pneumoniae PCR Not detected Not detected 01/25/2021 3:38 PM ELECTRIC TRUCK CRANE OPERATOR [facility] Microbiology (BAL/Bronchial Washing) Collection / Unknown 01/25/2021 11:31 AM ELECTRIC TRUCK CRANE OPERATOR 01/25/2021 11:44 AM ELECTRIC TRUCK CRANE OPERATOR Narrative [facility] - 01/25/2021 3:38 PM ELECTRIC TRUCK CRANE OPERATOR This nucleic acid amplification assay performance was validated by [facility]. This test has been authorized by the Food and Drug administration (FDA)under an Emergency??Use Authorization (EUA). This test has been validated in accordance with the FDA's guidance document Policy for Diagnostic Testing in Laboratories Certified to perform High Complexity Testing under CLIA prior to Emergency Use Authorization for Coronavirus Disease-2019 during the Public Health Emergency issued on May 11, 2019. FDA independent review of this validation is pending. This test is only authorized for the duration of time the declaration that circumstances exist justifying the authorization of emergency use of in vitro diagnostic tests for detection of SARS-CoV-2 virus and/or diagnosis of COVID-19 infection under section 564(b)(1) of the Act, 21 U.S.C 360bbb-3 (b)(1), unless the authorization is terminated or revoked sooner. Fact Sheets for this EUA assay are available upon request. This test was developed and its performance characteristics determined by [facility]. It has not been cleared or approved by the [place] Food and Drug Administration. Karen Jensen MINIATURE SET DESIGNER-CAR HEAD LINER INSTALLER LAB - MICROBIOL OGY ORDERABLES [facility] [address] [place], [place] [address], [facility] [phone] * SONOGRAM - COMPLETE (01/12/2021 10:26 AM CDT) Only the most recent of2 resultswithin the time period is included. Anatomical Region Laterality Modality Other 01/12/2021 10:2 6 AM CDT Narrative 01/12/2021 12:10 PM CDT ? [facility] ?[facility] ?PHONE: ??FAX: Pat. Name: ?CRISTOFER LARSON Pat. No: ?[id number] Study Date: ?? 01/12/2021 ??10:26am , Age: ? 2000, 20 Pregnancies: ?? 1 Height: ? 63 in Weight: ? 120 lb LMP: ?06/04/2020 GA by LMP: ?31w5d GA by Base: ?? 30w4d ?? SEBAS: 03/19/2021 GA by US: ? 31w3d ?? SEBAS: 03/13/2021 GA Selected: ??30w4d (From [facility]) SEBAS: ?03/19/2021 Referring MD: Pratima Mosqueda MD Senior Analytic Consultant: ??Deonna Pérez RDMS CPT4: ? 39764 BMI: ?21.25 Hist/Ind: ? History of methamphetamine and marijuana use ?Teen ?Asthma ?GDM MEASUREMENTS & AGE ? GROWTH EVALUATION Measurement ??GA ? Range ? Srce %for GA Ratios ----- ---- ------- BPD ??8.1 cm 32w4d (19u8m-39j7c) Hadl BPD 90% FL/BPD 0.73 (0.71 - 0.87) HC ??29.5 cm 32w4d (48i1l-32i4c) Hadl HC ??69% FL/AC ??0.22 (0.20 - 0.24) AC ??27.3 cm 31w3d (41j3x-41e4y) Hadl AC ??70% HC/AC ??1.08 (0.97 - 1.16) FL ?? 6.0 cm 31w0d (93w5c-23c8d) Hadl FL ??46% CI ? 0.79 (0.70 - 0.86) HL ?? 5.1 cm 29w6d (42s7d-38e0a) Jw HL ??38% GA for sonogram 31w3d (48t2f-69d0i) ?? Weight Estimate: based on (BPD,HC,AC,FL) [place] ?Weight: 1780 gm (1520-2039gm) Had ? : 3lbs, 14oz ? Normal: 1679 gm (1259- 2100gm) Had ? Wt% ? 68% for 30w4d Heart Rate: 128 bpm Amniotic Fluid Index: 17.2cm (08.9-23.7) Q1: 5.6cm ??Q2: 3.7cm ??Q3: 3.8cm ??Q4: 4.1cm ?? EVAL, PLACENTA Presentation: cephalic Placenta: anterior Heart Rate: 128 bpm Amniotic Fluid Volume: normal Anatomy!Normal!Abnormal!Suboptimal!Prev. Seen!Comments Situs ?! ?? x ??! ?! ?! ?! Stomach ?! ?? x ??! ?! ?! ?! Kidneys ?! ?? x ??! ?! ?! ?! Bladder ?! ?? x ??! ?! ?! ?! CLINICAL SUMMARY Study Number: 2 ?? No abnormalities were detected during today's limited review of the anatomy. IMPRESSION: ?? 1) Bell gestation, 30w4d 2) Biometry is consistent with appropriate growth 3) The amniotic fluid volume is within normal limits NOTE: The patient was advised that ultrasound does not allow detection of all structural or chromosomal abnormalities. ?? RECOMMEND: ?? Follow up ultrasound in 4 weeks to reevaluate growth Thank you for allowing us the opportunity to care for your patient. Constance Hargrove MD <Electronic Signature> ??01/12/2021 12:07pm Nate Souza MD [facility] ORDERABLES * (ABNORMAL) GTT 3 HR (100G) GESTATIONAL DIAGNOSTIC (12/28/2020 11:43 AM CDT) Glucose Dose Gestational 100 gm 12/28/2020 12:37 PM CDT [facility] Gestational GTT Fasting 75 70 - 105 mg/dL 12/28/2020 12:37 PM CDT [facility] Gestational GTT 1 HR 220(H) 54-<180 mg/dL 12/28/2020 12:37 PM CDT [facility] Gestational GTT 2 HR 221(H) 54-<155 mg/dL 12/28/2020 12:37 PM CDT [facility] Gestational GTT 3 HR 127 54-<140 mg/dL 12/28/2020 12:37 PM CDT [facility] Blood BLOOD SPECIMEN / Unknown Venipuncture / Unknown 12/28/2020 11:43 AM CDT 12/28/2020 8:54 AM CDT Karen Jensen MINIATURE SET DESIGNER-CAR HEAD LINER INSTALLER LAB - CHEMISTRY ORDERABLES [facility] [address] [place] [address] * TRICHOMONAS VAGINALIS AMPLIFIED PROBE (12/16/2020 11:29 AM CDT) Pathologist [facility] Trichomonas vaginalis Amplified Probe Negative Negative 12/17/2020 12:[address] [facility] Other URINE / Unknown Collection / Unknown 12/16/2020 11:29 AM CDT 12/16/2020 11:58 AM CDT Narrative [facility] - 12/17/2020 12:08 PM CDT This test was developed and its performance characteristics determined by the [facility], [facility]. Urine specimens tested by the [facility] [place] have not been cleared or approved by the U.S. Food and Drug Administration (FDA). The laboratory is regulated under the Clinical Laboratory Improvement Amendments (CLIA) as qualified to perform high-complexity testing. This test is used for clinical purposes. It should not be regarded as investigational or for research. Results based on detection/no detection of ribosomal RNA by amplified method. Kristi Robert APRN-CAR HEAD LINER INSTALLER LAB - MICROBIO LOGY ORDERABLES Performing Organization Address City/[facility] Co de Phone Number [facility] [address] [place] [address], [facility] [phone] * CHLAMYDIA + GC AMPLIFIED PROBE (STL) (12/16/2020 11:29 AM CDT) Chlamydia Amplified Probe Negative Negative 12/17/2020 6:[address] [facility] GC Amplified Probe Negative Negative 12/17/2020 6:44 AM CDT [facility] Microbiology URINE / Unknown Collection / Unknown 12/16/2020 11:29 AM CDT 12/16/2020 11:58 AM CDT Narrative [facility] - 12/17/2020 6:44 AM CDT Results based on detection/no detection of ribosomal RNA by amplified method. Kristi Robert APRN-CAR HEAD LINER INSTALLER LAB - MICROBIO LOGY ORDERABLES Performing Organization Address City/[facility]/ZIP Co de Phone Number [facility] [address] [place] [address], [facility] [phone] * CULTURE URINE (12/16/2020 11:25 AM CDT) Culture Urine 10,000-50,000 CFU/mL urogenital dario PETE 12/18/2020 6:[address] [facility] Urine URINE SPECIMEN OBTAINED BY CLEAN CATCH PROCEDURE / Unknown Collection / Unknown 12/16/2020 11:25 AM CDT 12/16/2020 11:58 AM CDT Isatu Dumont [facility] - MICROBIOLO GY ORDERABLES Performing Organization Address City/[facility]/ZIP Co de Phone Number [facility] [address] [place] [address], [facility] [phone] * SYPHILIS ANTIBODY [place]ASCADING REFLEX (12/16/2020 11:04 AM CDT) Treponema pallidum Antibody Non Reactive Non Reactive 12/16/2020 12:58 PM CDT [facility] Comment: No Laboratory evidence of syphilis infection. ?? Note: ??Circulating antibodies may be low or undetectable in early infection. ??If recent exposure is suspected, re-draw sample in 2-4 weeks and repeat testing. Blood BLOOD SPECIMEN / Unknown Venipuncture / Unknown 12/16/2020 11:04 AM CDT 12/16/2020 11:25 AM CDT Isatu Dumont [facility] CHILDREN LAB - SEROLOGY O RDERABLES Performing Organization Address City/[facility] Co de Phone Number [facility] [address] [place] [address] * HIV-1 HIV-2 ANTIBODY + HIV P24 AG PANEL (12/16/2020 11:04 AM CDT) HIV1/2 Ab + P24 Ag Non Reactive Non Reactive 12/16/2020 12:17 PM CDT [facility] Blood BLOOD SPECIMEN / Unknown Venipuncture / Unknown 12/16/2020 11:04 AM CDT 12/16/2020 11:25 AM CDT Narrative [facility] - 12/16/2020 12:17 PM CDT No Laboratory evidence of HIV infection. Isatu Dumont APRN-CAR HEAD LINER INSTALLER LAB - CHEMISTRY ORDERABLES Performing Organization Address [facility]/ZIP Co de Phone Number [facility] [address] [place] [address] * RUBELLA ANTIBODY IGG (12/16/2020 11:04 AM CDT) Rubella Antibody 1.66 Immune >0.99 index 12/17/2020 7:09 AM CDT [facility] ([facility]) Comment: ?Non-immune ? <0.90 ?Equivocal ??0.90 - 0.99 ?Immune ? >0.99 Blood BLOOD SPECIMEN / Unknown Venipuncture / Unknown 12/16/2020 11:04 AM CDT 12/16/2020 11:25 AM CDT Narrative [facility] ([facility]) - 12/17/2020 7:09 AM CDT Performed at: ??01 - [facility] [address] ??[id number] Toggle Press Operator: Bashir Gupta PhD, Phone: ??[phone] Isatu Dumont APRN-CAR HEAD LINER INSTALLER LAB - SEROLOGY O RDERABLES Performing Organization Address City/[facility]/ZIP Co de Phone Number [facility] ([facility]) [address] [place] [address] * TYPE + SCREEN PANEL (12/16/2020 11:04 AM CDT) ABO Rh A POS 12/16/2020 12:15 PM CDT [facility] Comment:No history; collect retype. Antibody Screen NEG 12:15 PM CDT [facility] Blood Bank BLOOD SPECIMEN / Unknown Venipuncture / Unknown 12/16/2020 11:04 AM CDT 12/16/2020 11:25 AM CDT Isatu Dumont MINIATURE SET DESIGNER-CAR HEAD LINER INSTALLER LAB - BLOOD BANK ORDERABLES [facility] [address] [phone] * CYSTIC FIBROSIS MUTATION PANEL (12/16/2020 11:04 AM CDT) Cystic Fibrosis Screen Comment: 12/22/2020 7:07 PM CDT [facility] ([facility]) Comment: RESULTS: Negative for 32 mutations analyzed INTERPRETATION: This individual is negative for the mutations analyzed. This negative result may need further interpretation depending on the clinical indication. ??This result reduces but does not eliminate the risk to be a CF carrier. COMMENTS: The detection rate varies with ethnicity and is listed below. ??The presence of an undetected mutation in the CF gene cannot be ruled out. ??In the absence of family history, the remaining risk that a person with a negative result could have at least one CF mutation is listed in the table. ??If there is a family history of CF, these risk figures do not apply. ??As detailed information regarding this individual's family history would permit a more accurate assessment of this individual's risk to be a carrier of cystic fibrosis, please contact [facility] at for a revised report. Mutation Detection ??Detection rates are based on mutation Rates among Ethnic ??frequencies in patients affected with Groups ?cystic fibrosis. ??Among individuals ?with an atypical or mild presentation ?(e.g. congenital absence of the vas ?deferens, pancreatitis) detection ? rates may vary from those provided here: ? Carrier risk ?reduction when no ? family history ?Detection Ethnicity ? Rate Ashkenazi ? 04/07 to ?97% Restorationism ? 04/06 to ?90% (non-) -Swedish ? to ?69% ? to ?73% ? to ?55% This interpretation is based on the clinical and family relationship information provided and the current understanding of the molecular genetics of this condition. MUTATIONS ANALYZED: G85E ?V520F ?N0335I ? 2183AA to G R117H ? G542X ?M7596B ? 2184delA R334W ? S549N ?394delTT ? 2789+5G to A R347H ? S549R ?621+1G to T ?3120+1G to A R347P ? G551D ?711+1G to T ?3659delC A455E ? R553X ?1078delT ? 3849+10kbC to T PwottC618 ?? R560T ?1717-1G to A ?? 3876delA TcottG173 ?? W0853K ?? 1898+1G to A ?? 3905insT METHODS/LIMITATIONS: DNA is isolated from the sample and tested for the 32 CF mutations on the [employer] Array Platform ([employer]). Regions of the CFTR gene are amplified enzymatically and subjected to a solution-phase multiplex allele-specific primer extension with subsequent hybridization to a bead array and fluorescence detection. ??Polymorphisms F508C, I506V and I507V are included in this panel to rule out false positive [id number] homozygotes. ??Reflex testing of 5T is included in the panel for R117H interpretation. False positive or negative results may occur for reasons that include genetic variants, blood transfusions, bone marrow transplantation, erroneous representation of family relationships or contamination of a sample with maternal cells. REFERENCES: 1. Updates on Carrier Screening for Cystic Fibrosis. (2010) ?? Am J Ob Gynecol 117(4):6628-2731 2. Abhinav et al. (2004) [place] Med 6:387-91 3. Gricel et al. (2002) [place] Med 4:379-391 4. Preconception and carrier screening for cystic ?? fibrosis: (2001)ACOG.ACMG publication Results Released By: Gaurav Patterson, Ph.D. Cigar Head Puncher Report Released By: Gaurav Patterson, Ph.D. Cigar Head Puncher Comment Comment 12/22/2020 7:07 PM CDT [facility] ([facility]) Comment: The assay provides information intended to be used for carrier screening in adults of reproductive age, as an aid in screening, and as a confirmatory test for another medically established diagnosis in newborns and children. The test is not indicated for use in diagnostic testing, pre-implantation screening, or for any stand-alone diagnostic purposes without confirmation by another medically established diagnostic product or procedure. Blood BLOOD SPECIMEN / Unknown Venipuncture / Unknown 12/16/2020 11:04 AM CDT 12/16/2020 11:26 AM CDT Narrative [facility] ([facility]) - 12/22/2020 7:07 PM CDT Performed at: ??01 - [facility] ??[id number] Toggle Press Operator: Junior Smith [facility], Phone: ??[phone] Isatu Rosalia Dumont MINIATURE SET DESIGNER-CAR HEAD LINER INSTALLER LAB - HEMATOLOGY ORDERABLES [facility] ([facility]) [address] [place] [address] * (ABNORMAL) CBC W AUTO DIFFERENTIAL (12/16/2020 11:04 AM CDT) WBC 8.8 4.4 - 10.7 x10E9/L 12/16/2020 11:34 AM CDT [facility] WBC Corrected 12/16/2020 11:34 AM CDT [facility] RBC 3.93 3.80 - 5.20 x10E12/L 12/16/2020 11:34 AM CDT [facility] Hemoglobin 11.8(L) 12.0 - 15.6 gm/dL 12/16/2020 11:34 AM CDT [facility] Hematocrit 35.2(L) 35.9 - 45.5 % 12/16/2020 11:34 AM CDT [facility] MCV 89.6 80.7 - 98.3 fl 12/16/2020 11:34 AM CDT [facility] MCH 30.0 26.7 - 34.0 pg 12/16/2020 11:34 AM CDT [facility] MCHC 33.5 30.8 - 35.9 gm/dL 12/16/2020 11:34 AM CDT [facility] Platelet Count 225 153 - 416 x10E9/L 12/16/2020 11:34 AM CDT [facility] RDW-CV 13.9 12.1 - 14.9 % 12/16/2020 11:34 AM CDT [facility] MPV 11.3 9.4 - 12.9 fl 12/16/2020 11:34 AM CDT [facility] Neutrophils % 76.3(H) 44.0 - 73.0 % 12/16/2020 11:34 AM CDT [facility] Lymphocytes % 15.9(L) 20.0 - 43.0 % 12/16/2020 11:34 AM CDT [facility] Monocytes % 6.0 5.0 - 13.0 % 12/16/2020 11:34 AM CDT [facility] Eosinophils % 1.0 0.0 - 6.0 % 12/16/2020 11:34 AM CDT [facility] Basophils % 0.5 0.0 - 2.0 % 12/16/2020 11:34 AM CDT [facility] Immature Granulocytes 0.3 0 - 1 % 12/16/2020 11:34 AM CDT [facility] Neutrophil Absolute 6.74 2.01 - 7.14 x10E9/L 12/16/2020 11:34 AM CDT [facility] Lymphocytes Absolute 1.40 1.07 - 3.94 x10E9/L 12/16/2020 11:34 AM CDT [facility] Monocytes Absolute 0.53 0.26 - 1.07 x10E9/L 12/16/2020 11:34 AM CDT [facility] Eosinophils Absolute 0.09 0 - 0.47 x10E9/L 12/16/2020 11:34 AM CDT [facility] Basophils Absolute 0.04 0 - 0.08 x10E9/L 12/16/2020 11:34 AM CDT [facility] Immature Granulocytes Absolute 0.03 0.00 - 0.06 x10E9/L 12/16/2020 11:34 AM CDT [facility] nRBC Auto 0 /100 WBC 12/16/2020 11:34 AM CDT [facility] Blood BLOOD SPECIMEN / Unknown Venipuncture / Unknown 12/16/2020 11:04 AM CDT 12/16/2020 11:25 AM CDT Isatu Dumont MINIATURE SET DESIGNER-CAR HEAD LINER INSTALLER LAB - HEMATOLOGY ORDERABLES [facility] [address] [place] [address] * HEPATITIS B SURFACE ANTIGEN W RFLX CONFIRMATION (12/16/2020 11:04 AM CDT) HBsAg Non Reactive Non Reactive 12/16/2020 12:58 PM CDT [facility] Blood BLOOD SPECIMEN / Unknown Venipuncture / Unknown 12/16/2020 11:04 AM CDT 12/16/2020 11:25 AM CDT Isatu Dumont MINIATURE SET DESIGNER-CAR HEAD LINER INSTALLER LAB - CHEMISTRY ORDERABLES Performing Organization Address [facility] Co de Phone Number [facility] [address] [place] [phone] * HEPATITIS C ANTIBODY (12/16/2020 11:04 AM CDT) [facility] HCV Antibody Screen Non Reactive Non Reactive 12/16/2020 12:58 PM CDT [facility] Blood BLOOD SPECIMEN / Unknown Venipuncture / Unknown 12/16/2020 11:04 AM CDT 12/16/2020 11:25 AM CDT Narrative [facility] - 12/16/2020 12:58 PM CDT Non Reactive - Antibodies to Hepatitis C virus (HCV) were not detected, result does not exclude early acute HCV infection. Isatu Dumont MINIATURE SET DESIGNER-[facility] LAB - CHEMISTRY ORDERABLES Performing Organization Address [facility] de Phone Number [facility] [address] [place] [phone] * (ABNORMAL) COMPREHENSIVE METABOLIC PANEL (12/16/2020 10:46 AM CDT) [facility] Glucose 141(H) 70 - 105 mg/dL 12/16/2020 11:57 AM CDT [facility] Sodium 134(L) 136 - 145 mmol/L 12/16/2020 11:57 AM CDT [facility] Potassium 3.5 3.5 - 5.1 mmol/L 12/16/2020 11:57 AM CDT [facility] Chloride 108(H) 98 - 107 mmol/L 12/16/2020 11:57 AM CDT [facility] CO2 16(L) 23 - 31 mmol/L 12/16/2020 11:57 AM CDT [facility] Calcium 8.8 8.4 - 10.4 mg/dL 12/16/2020 11:57 AM CDT [facility] Anion Gap 10 8 - 18 mmol/L 12/16/2020 11:57 AM CDT [facility] BUN 8 7 - 18.7 mg/dL 12/16/2020 11:57 AM CDT [facility] Creatinine 0.63 0.57 - 1.11 mg/dL 12/16/2020 11:57 AM CDT [facility] Alkaline Phosphatase 65 40 - 150 U/L 12/16/2020 11:57 AM CDT [facility] ALT 8 0 - 61 U/L 12/16/2020 11:57 AM CDT [facility] AST 11 5 - 34 U/L 12/16/2020 11:57 AM CDT [facility] Protein Total 6.1(L) 6.4 - 8.3 gm/dL 12/16/2020 11:57 AM CDT [facility] Albumin 3.3(L) 3.4 - 5.0 gm/dL 12/16/2020 11:57 AM CDT [facility] Bilirubin Total 0.5 0.2 - 1.2 mg/dL 12/16/2020 11:57 AM CDT [facility] eGFR by MDRD >60 >60 mL/min/1.7 3m2 12/16/2020 11:57 AM T [facility] eGFR by MDRD >60 >60 mL/min/1.7 3m2 12/16/2020 11:57 AM CDT [facility] Blood BLOOD SPECIMEN / Unknown Venipuncture / Unknown 12/16/2020 10:46 AM CDT 12/16/2020 11:25 AM CDT Isatu Dumont MINIATURE SET DESIGNER-CAR HEAD LINER INSTALLER LAB - CHEMISTRY ORDERABLES Performing Organization Address City/State/[facility] Co de Phone Number [facility] [address] [place], [place] [id number] * (ABNORMAL) GLUCOSE CHALLENGE (12/16/2020 10:46 AM CDT) [facility] Glucose Challenge 141(H) 64 - 140 mg/dL 12/16/2020 12:11 PM CDT [facility] Glucose Challenge Time 12/16/2020 12:11 PM CDT [facility] Blood BLOOD SPECIMEN / Unknown Venipuncture / Unknown 12/16/2020 10:46 AM CDT 12/16/2020 11:25 AM CDT Isatu Dumont MINIATURE SET DESIGNER-CAR HEAD LINER INSTALLER LAB - CHEMISTRY ORDERABLES Performing Organization Address City/State/[facility] Co de Phone Number [facility] [address] [place] [address] Care Teams Forming Department End Finder Relationship Specialty Start Date End Date Shelley Angel MSW Outpatient Liability Analyst 01/11/21
--- OUTSIDE RECORDS SUMMARY | 2024-04-07 16:46 | XMS_ITS | Clinical Summary ---
Author Organization [facility] Address [address] [place] [address] Care Team Providers Care Clinical Business Manager Name Role Phone Shelley Angel MSW Unavailable Unavailable Source Comments [facility],non-owned Affiliates and Associated Physician Practices is amultiple site organization consisting of ambulatory clinics and hospital sitesin [place], [place], [place] and [place]. This disclosure is being madepursuant to the Care Everywhere program and may not contain all information available regarding this patient. Last updated 17.[facility] Allergies No known active allergies Medications * Be aware that medications may not be up to date on this document. Alwaysverify current medications with the patient. Medication Sig Dispensed Refills Start Date End Date Status albuterol HFA (PROVENTIL;VENTOLIN ;PROAIR) 108 (90 Base) MCG/ACT inhalerIndications: Asthma Inhale 2 (two) puffs by mouth every 6 hours as needed for Shortness of Breath or Wheezing Reasons: Asthma 18 g 1 01/05/2021 Active nicotine (NICODERM CQ) 14 MG/24HR patchIndications:Ni cotine Dependence Apply 1 (one) patch to skin once daily Reasons: Nicotine Addiction 30 patch 1 01/05/2021 Active Vit-Fe Fumarate-FA (SM VITAMINS) 28-0.8 MG TABSIndications:Pre gnancy Take 1 tablet by mouth once daily Reasons: 30 tablet 11 01/05/2021 Active blood glucose (ONETOUCH VERIO) test strip To monitor blood glucose (sugar) 4x daily- fasting and 1 hour after meals 150 strip 5 01/05/2021 Active Lancets (ONETOUCH DELICA PLUS 33G EXTRA FINE LANCET) To monitor blood glucose (sugar) 4x daily- fasting and 1 hour after meals 100 Each 5 01/05/2021 Active hydrocortisone (CORTISONE -5) 0.5 % cream Apply to affected area 4 times daily 30 g 01/12/2021 Active Additional Information Patient not taking.Reported on 01/25/2021 Active Problems Problem Noted Date Diagnosed Date 34 weeks gestation of 02/03/2021 Maculopapular rash 01/12/2021 complicated by tobacco use in third tr imester 01/12/2021 Gestational diabetes 12/28/2020 Overview (12/28/2020): GTT 75/220/221/127 Methamphetamine use disorder, severe 12/16/2020 Overview (12/16/2020): Treatment: QOP inpatient Marijuana use 12/16/2020 Asthma 12/16/2020 Anxiety 12/16/2020 Overview (12/16/2020): No medications Supervision of high-risk of young prim igravida 12/15/2020 Overview (01/27/2021): Datin wk US PNL: A+/Imm/-/-, HIV NR, HCV NR Pap: not indicated GC/CT: neg/neg Trich: Urine cx: negative UDS: H/H/P: 11.8/35.2/225 HgbE: Genetics: NIPT sent 12/16 CF negative Anatomy US: Flu shot: declined 12/16 Covid vaccine: declined 12/16 LFT's: WNL 12/16 GCT: 141 Tdap: given 12/16 GBS: negative Resolved Problems Problem Noted Date Diagnosed Date Resolved Date Abnormal O'Chávez glucose challenge test, antepartum 12/16/2020 12/28/2020 Overview (12/16/2020): GCT 141, needs 3 hour GTT Immunizations Name Administration Dates Next Due Invisible primary monoval ent 12+ yr 0.3mL Purple cap 02/01/2021,01/12/2021 DTaP VACCINE IM (6wk-6yrs) 11/02/2004,,06/19/2002,11/06 HEP A PEDS 2 DOSE 11/25/2015,11/06/2012 HEP B VACCINE, PED/ADOL 03/19/2003 HIB Hep B 06/19/2002,2001 HIB-HAEMOPHILUS INFLUENZAE B CONJUGATE VACCINE 03/19/2003 Human Papilloma Virus Nineva lent Vaccine 11/25/2015 Human Papilloma Virus Donte valent Vaccine 01/01/2013,11/06/2012 INFLUENZA VACCINE, QUADR. (F LUZONE; FLULAVAL; FLUARIX; AFLURIA QUADRIVALENT; 6MO+), 0.5 ML (IIV4) 01/12/2021 MENINGOCOCCAL CONJUGATE (MCV4P) 11/06/2012 MMR 06/19/2002 PNEUMOCOCCAL PCV7 CONJ, PEDS 03/19/2003,06/20/19 03,2001 POLIO IPV 03/19/2003,06/19/2002,2001 TDAP (7yrs+) 12/16/2020,11/06/2012 VARICELLA 11/06/2012,11/02/2004 Family History Medical History Relation Name Comments ADD/ADHD Brother Bipolar Disorder Brother Cancer Maternal Grandmother Cancer Paternal Grandfather Relation Name Status Comments Brother Father Alive Maternal Grandmother Alive Mother Alive Paternal Grandfather Social History Tobacco Use Types Packs/Day Years [...] Comments Blood Pressure 99/60 02/01/2021 1:07 PM AUTOMATIC FABRIC CUTTER Pulse 103 02/01/2021 1:07 PM AUTOMATIC FABRIC CUTTER Temperature 36.7 ??C (98 ??F) 02/01/2021 1:07 PM AUTOMATIC FABRIC CUTTER Respiratory Rate 18 02/01/2021 1:07 PM AUTOMATIC FABRIC CUTTER Oxygen Saturation 98% 02/01/2021 1:07 PM AUTOMATIC FABRIC CUTTER Inhaled Oxygen Concentration - - Weight 67.6 kg (149 lb) 02/01/2021 1:07 PM AUTOMATIC FABRIC CUTTER Height 161.3 cm (5' 3.5 ) 12/16/2020 9:02 AM CDT Body Mass Index 25.98 12/16/2020 9:02 AM CDT Plan of Treatment Health Maintenance Due Date Last Done Comments PAP SMEAR 2001 PNEUMOCOCCAL VACCINE (1 of 1 - PPSV23) 2007 03/19/2003, 06/19/2002, 2001 MENINGOCOCCAL (Group B) VACCINE (1 of 2 - Standard) 2017 CHLAMYDIA/GONORRHEA SCREENING 12/16/2021 12/16/2020 COVID-19 VACCINE (3 - season) 2023 02/01/2021, 01/12/2021 INFLUENZA VACCINE (#1) 2023 01/12/2021 DEPRESSION SCREENING 03/13/2024 DTAP/TDAP/TD VACCINES (7 - Td or Tdap) 12/16/2030 12/16/2020, 11/06/2012, 11/02/2004, Additional history exists ZOSTER VACCINE (1 of 2) 2051 HEPATITIS B VACCINE Completed 03/19/2003, 06/19/2002, 2001 HIB VACCINE Completed 03/19/2003, 11/2002, 2001 MENINGOCOCCAL VACCINE Aged Out 11/06/2012 No daniel ramón eligible based on patient's age to complete this topic HPV VACCINE Completed 11/25/2015, 12/12, 11/06/2012 HEPATITIS C SCREENING Completed 12/16/2020 HIV SCREENING Completed 12/16/2020 Procedures Procedure Name Priority Date/Time Associated Diagnosis Comments CHLAMYDIA + GC AMPLIFIED PROBE Routine 12/16/2020 11:29 AM CDT Supervision of high-risk of young primigravida (HCC) HEPATITIS C ANTIBODY Routine 12/16/2020 11:04 AM CDT Supervision of high-risk of young primigravida (HCC) HIV-1 HIV-2 ANTIBODY + HIV P24 AG PANEL Routine 12/16/2020 11:04 AM CDT Supervision of high-risk of young primigravida (HCC) from Last 3 Months or Most Recently Relevant to Health Maintenance Results * CHLAMYDIA + GC AMPLIFIED PROBE (STL) (12/16/2020 11:29 AM CDT) [facility] Chlamydia Amplified Probe Negative Negative 12/17/2020 6:44 AM CDT [facility] GC Amplified Probe Negative Negative 12/17/2020 6:44 AM CDT [facility] Microbiology URINE / Unknown Collection / Unknown 12/16/2020 11:29 AM CDT 12/16/2020 11:58 AM CDT Narrative [facility] - 12/17/2020 6:44 AM CDT Results based on detection/no detection of ribosomal RNA by amplified method. Kristi Robert ROPE MAKING MACHINE OPERATOR-[facility] - MICROBIO LOGY ORDERABLES [facility] [address] [place] [address], [facility] [phone] * HIV-1 HIV-2 ANTIBODY + HIV P24 AG PANEL (12/16/2020 11:04 AM CDT) [facility] HIV1/2 Ab + P24 Ag Non Reactive Non Reactive 12/16/2020 12:17 PM CDT [facility] Blood BLOOD SPECIMEN / Unknown Venipuncture / Unknown 12/16/2020 11:04 AM CDT 12/16/2020 11:25 AM CDT Narrative [facility] - 12/16/2020 12:17 PM CDT No Laboratory evidence of HIV infection. Isatu Dumont ROPE MAKING MACHINE OPERATOR-[facility] - CHEMISTRY ORDERABLES [facility] [address] [place] [address] * HEPATITIS C ANTIBODY (12/16/2020 11:04 AM CDT) [facility] HCV Antibody Screen Non Reactive Non Reactive 12/16/2020 12:58 PM CDT [facility] Blood BLOOD SPECIMEN / Unknown Venipuncture / Unknown 12/16/2020 11:04 AM CDT 12/16/2020 11:25 AM CDT Narrative [facility] - 12/16/2020 12:58 PM CDT Non Reactive - Antibodies to Hepatitis C virus (HCV) were not detected, result does not exclude early acute HCV infection. Isatu Dumont ROPE MAKING MACHINE OPERATOR-[employer]AN[employer] LAB - CHEMISTRY ORDERABLES [facility] [address] [place] [address] from Last 3 Months or Most Recently Relevant to Health Maintenance Care Teams Clinical Business Manager Relationship Specialty Start Date End Date Shelley Angel MSW Outpatient Manager Of Procurement 01/11/21
--- OUTSIDE RECORDS SUMMARY | 2024-04-07 16:46 | XMS_ITS | Referral Summary ---
Author Organization [facility] Address [address] [place] [address] Care Team Providers Care Bss Solution Architect Name Role Phone Shelley Angel MSW Unavailable Unavailable Source Comments [facility],non-owned Affiliates and Associated Physician Practices is amultiple site organization consisting of ambulatory clinics and hospital sitesin [place], [place] and [place]. This disclosure is being madepursuant to the Care Everywhere program and may not contain all information available regarding this patient. Last updated 17.[facility] Allergies No known active allergies Medications * [...] GTT Immunizations Name Administration Dates Next Due [employer] primary monoval ent 12+ yr 0.3mL Purple [...] IPV 03/19/2003,06/19/2002,2001 TDAP (7yrs+) 12/16/2020,11/06/2012 VARICELLA 11/06/2012,11/02/2004 Social History Tobacco Use Types Packs/Day Years [...] Comments Blood Pressure 99/60 02/01/2021 1:07 PM OPERATIONS TECHNICIAN Pulse 103 02/01/2021 1:07 PM OPERATIONS TECHNICIAN Temperature 36.7 ??C (98 ??F) 02/01/2021 1:07 PM OPERATIONS TECHNICIAN Respiratory Rate 18 02/01/2021 1:07 PM OPERATIONS TECHNICIAN Oxygen Saturation 98% 02/01/2021 1:07 PM OPERATIONS TECHNICIAN Inhaled Oxygen Concentration - - Weight 67.6 kg (149 lb) 02/01/2021 1:07 PM OPERATIONS TECHNICIAN Height 161.3 cm (5' 3.5 ) 12/16/2020 9:02 AM CDT Body Mass Index 25.98 12/16/2020 9:02 AM CDT Plan of Treatment Not on file Procedures Procedure Name Priority Date/Time Associated Diagnosis [...] AMPLIFIED PROBE (STL) (12/16/2020 11:29 AM CDT) Pathologist [facility] Chlamydia Amplified Probe Negative Negative 12/17/2020 6:44 AM CDT [facility] GC Amplified Probe Negative Negative 12/17/2020 6:44 AM CDT [facility] Microbiology URINE / Unknown Collection / Unknown 12/16/2020 11:29 AM CDT 12/16/2020 11:58 AM CDT Narrative [facility] - 12/17/2020 6:44 AM CDT Results based on detection/no detection of ribosomal RNA by amplified method. Kristi Robert PUTTY REMOVER-DRUM STOCK CLERK LAB - MICROBIO LOGY ORDERABLES [facility] [address] [place] [address], [facility] [phone] * HIV-1 HIV-2 ANTIBODY + HIV P24 AG PANEL (12/16/2020 11:04 AM CDT) Pathologist [facility] HIV1/2 Ab + P24 Ag Non Reactive Non Reactive 12/16/2020 12:17 PM CDT [facility] Blood BLOOD SPECIMEN / Unknown Venipuncture / Unknown 12/16/2020 11:04 AM CDT 12/16/2020 11:25 AM CDT Narrative [facility] - 12/16/2020 12:17 PM CDT No Laboratory evidence of HIV infection. Isatu Hankinslow PUTTY REMOVER-DRUM STOCK CLERK LAB - CHEMISTRY ORDERABLES Performing Organization Address City/[facility]/ZIP Co de Phone Number [facility] [address] [place] [address] * HEPATITIS C ANTIBODY (12/16/2020 11:04 AM CDT) HCV Antibody Screen Non Reactive Non Reactive 12/16/2020 12:58 PM CDT [facility] Blood BLOOD SPECIMEN / Unknown Venipuncture / Unknown 12/16/2020 11:04 AM CDT 12/16/2020 11:25 AM CDT Narrative [facility] - 12/16/2020 12:58 PM CDT Non Reactive - Antibodies to Hepatitis C virus (HCV) were not detected, result does not exclude early acute HCV infection. Isatu Lindsey Tim PUTTY REMOVER-DRUM STOCK CLERK LAB - CHEMISTRY ORDERABLES Performing Organization Address [facility] Co de Phone Number [facility] [address] [place] [address] from Last 3 Months or Most Recently Relevant to Health Maintenance Care Teams Bss Solution Architect Relationship Specialty Start Date End Date Shelley Angel MSW Outpatient [employer] Worker 01/11/21
[2024-04-07 17:03] LABS: Basophils Percent Auto 0.5 % (0.2-1.2); Eosinophils Absolute Auto 0.1 K/mm3 (0-0.3); Eosinophils Percent Auto 0.6 % (0-4.4); Hematocrit 33.8 % (37.0-47.0); Immature Granulocyte Absolute 0.04 K/mm3 (0.00-0.031); Immature Granulocyte Percent A 0.5 % (0-0.5); Lymphocytes Percent Auto 11.4 % (18.3-44.2); Mean Corpuscular HGB Conc 32.5 g/dl (32-36); Mean Corpuscular Hemoglobin 26.5 pg (26-34); Mean Corpuscular Volume 81.4 fl (80-100); Mean Platelet Volume 11.8 fl (7.4-10.4); Monocytes Absolute Auto 0.7 K/mm3 (0.1-0.6); Monocytes Percent Auto 8.4 % (2.6-8.5); Neutrophils Absolute Auto 6.9 K/mm3 (1.3-6.7); Neutrophils Percent Auto 78.6 % (45.5-73.1); Platelet Count Result 241 k/mm3 (150-375); Red Blood Count 4.15 M/mm3 (4.2-5.4); Red Cell Distribution Width 15.1 % (11.5-14.5); White Blood Count 8.8 K/mm3 (4.5-10.0)
[2024-04-07] MEDS: LACTATED RINGERS 1,000 ML 999 ML IV CONT (17:06)
[2024-04-07] MEDS: AMPICILLIN 2 GM/NS 100 ML 2 GM/100 ML BAG IVPB (17:07)
--- NOTE | 2024-04-07 17:14 | PC.NURSE ---
This patient, Melissa Gill, was admitted to Labor/Delivery/Recovery 104 on 04/07/24 at 16:30. Plans for labor, pain management and were discussed with patient. Patient/family oriented to hospital policies and general routines including ID bracelet, bed and alarms, visiting hours, pain management, procedures, bathroom and other care routines, personal items, smoking policy, room service/diet and guest tray routines, security routines, and visiting hours. Patient/Family are encouraged to report perceived risks to care and to ask questions if they do not understand what they are told or what they should do. See OBIX for further documentation.
[2024-04-07] MEDS: OXYTOCIN 30 UNITS/NS 500 ML 30 UNITS/500 ML BAG 999 UNITS IV CONT (17:26)
--- NOTE | 2024-04-07 17:36 | PM.IMHP ---
H&P: [facility] History of Present Illness Date/Time: 04/07/24 17:36 Chief Complaint: Contractions Narrative: this patient is a 23-year-old multiparous female presented in labor. She was 6 cm on admission. She had reassuring status. She got her care at an outside institution. She was in active labor and progressed quickly to complete. Pushed shortly and delivered quickly. She has an unremarkable obstetric history. Review of Systems Review of Systems: All systems reviewed & are unremarkable except as noted in HPI and below Constitutional: Constitutional: Denies chills, Denies fatigue, Denies fever(s) and Denies weakness Eyes: Eyes: Denies blurry vision, Denies change in vision, Denies loss of peripheral vision, Denies loss of vision, Denies other visual disturbances and Denies eye pain ENT: Denies vertigo, Denies dizziness, Denies hearing loss, Denies mouth pain, Denies nasal obstruction, Denies neck mass and Denies neck pain Cardiovascular: Cardiovascular: Denies chest pain, Denies diaphoresis, Denies syncope, Denies leg edema and Denies dyspnea Respiratory: Respiratory: Denies chest congestion, Denies cough, Denies hemoptysis, Denies dyspnea and Denies wheezing Gastrointestinal: Gastrointestinal: Denies abdominal pain, Denies constipation, Denies diarrhea, Denies nausea and Denies vomiting Genitourinary: Genitourinary: Denies hematuria, Denies change in libido, Denies nocturia, Denies genital lesions, Denies flank pain and Denies urinary urgency Musculoskeletal: Musculoskeletal: Denies abnormal gait, Denies back pain, Denies myalgias, Denies arthralgias, Denies joint swelling, Denies muscle weakness and Denies neck pain Integumentary/Breasts: Skin/Breast: Denies swelling, Denies breast pain, Denies breast mass, Denies dry skin, Denies nipple discharge, Denies unusual bruising and Denies jaundice Neurologic: Denies Neuro-related abnormal movements, Denies Abnormal speech present, Denies abnormal gait, Denies behavioral changes, Denies confusion, Denies vertigo, Denies dizziness, Denies syncope, Denies loss of vision, Denies memory loss, Denies convulsions and Denies weakness Psychiatric: Psychiatric: Denies abnormal sleep pattern, Denies behavioral changes, Denies change in libido, Denies confusion, Denies depression, Denies anhedonia and Denies memory loss Endocrine: Endocrine: Reports no additional endocrine complaints, Denies change in libido and Denies fatigue Hematologic/Lymphatic: Hematologic/Lymphatic: Reports no additional hematologic/lymphatic complaints Allergic/Immunologic: Allergic/Immunologic: Reports no additional allergic/immunologic complaints and Denies wheezing PMFSH Past Medical History Medical History Patient denies medical problems Social History Social History Smoking status: Never smoker Alcohol intake: never Substance use type: marijuana Living arrangements: with family Meds Home Medications and Allergies Home Medications ?Medication ?Instructions ?Recorded ?Confirmed ?Type famotidine 20 mg tablet (Pepcid) 20 mg PO BID #30 tabs 07/29/23 08/07/23 Rx sulfamethoxazole 800 1 tablet PO Q12H #7 tabs 07/29/23 08/07/23 Rx mg-trimethoprim 160 mg tablet (Bactrim DS) Allergies Allergy/AdvReac Type Severity Reaction Status Date / Time No Known Allergies Allergy Verified 08/07/23 13:35 Vital Signs Vital Signs - 24 hr 04/07/24 16:45 04/07/24 17:00 04/07/24 17:16 Pulse Rate 97 108 H Blood Pressure 129/81 150/90 H 148/128 H 04/07/24 17:31 Pulse Rate 88 Blood Pressure 123/78 Exam Const: General: cooperative, healthy appearing, comfortable and no acute distress Orientation/consciousness: oriented to person, oriented to place and oriented to time HENMT: Head: normal to inspection Ears: external ears normal Face/Nose/Sinus: Normal external nose present and normal facial exam Face and sinus: normal facial exam Eyes: General: appearance normal, both eyes and all related structures Neck: Neck: normal visual inspection, trachea midline and supple Resp: Auscultation: clear to auscultation bilaterally, no crackles, no rales, no rhonchi and no wheezes Cardio: Rate: regular rate Rhythm: regular rhythm Heart sounds: no click, no murmurs and no rubs GI: GI Palp: No abdominal tenderness, No Soft to palpation, No Tenderness to palpation present (GI) and No Palpable mass present Auscultation: normal bowel sounds Skin: General skin exam: normal color and no rashes or lesions noted Neuro: General: oriented to person, oriented to place and oriented to time Extrem: General: normal to inspection, no joint enlargement, no clubbing, cyanosis or edema, no pedal edema and no calf tenderness Psych: Appearance: grossly normal Mental Status: mental status grossly normal Speech and movement: Normal speech and movement present H&P: Results Labs Labs: Short CBC 04/07/24 Range/Units 16:54 WBC 8.8 (4.5-10.0) K/mm3 Hgb 11.0 L (12.0-15.0) g/dL Hct 33.8 L (37.0-47.0) % Plt Count 241 (150-375) k/mm3 Assessment and Plan Assessment and plan (1) Active labor: Status: Acute Plan this patient is a 23-year-old multiparous female presented in labor. She was 6 cm on admission. She had reassuring status. She got her care at an outside institution. She was in active labor and progressed quickly to complete. Pushed shortly and delivered quickly. She has an unremarkable obstetric history.
--- NOTE | 2024-04-07 17:40 | PM.OBPRVD ---
OB - Vaginal Delivery Note Procedure Delivery date: 04/07/24 Delivery augmentation: Rupture of Membranes Delivery monitor: External FHT and External Uterine Route of delivery: Episiotomy description: None Laceration Description: None Specimen: No Quantitative Blood Loss (ml): 200 Anesthesia type: None Disposition: Floor Complications: No immediate complications
[2024-04-07] MEDS: OXYTOCIN 30 UNITS/NS 500 ML 30 UNITS/500 ML BAG 125 UNITS IV CONT (17:56)
[2024-04-07] MEDS: IBUPROFEN 600 MG TABLET (17:58)
[2024-04-07 17:59] LABS: HIV 1/2 Ab P24 Ag Result Negative (Negative)
[2024-04-07 18:35] LABS: Rapid Plasma Reagin Non-Reactive (NonReactive)
[2024-04-07] MEDS: ACETAMINOPHEN 325 MG TABLET 650 MG PO (18:58)
[2024-04-07 20:11] LABS: Amphetamine Screen Urine Positive (Negative); Barbiturate Screen Urine Negative (Negative); Benzodiazepines Screen Urine Negative (Negative); Cannabinoid Screen Urine Positive (Negative); Cocaine Screen Urine Negative (Negative); Methadone Screen Urine Negative (Negative); Opiate Screen Urine Negative (Negative); Phencyclidine Screen Urine Negative (Negative)
--- NOTE | 2024-04-07 21:09 | OBPPTRN ---
04/07/2024 at 2009 Patient transferred to post room #285 in wheelchair. Support person and patient oriented to unit, room, information board, rooming in, admission packet and security measures. Patient and her significant other verbalizes understanding.
[2024-04-08 05:21] LABS: Hematocrit 31.1 % (37.0-47.0); Hemoglobin 9.7 g/dL (12.0-15.0)
[2024-04-08 07:30] VITALS: BP 121/68; PULSE 72; RESP 16; TEMP 36.5; O2SAT 98
[2024-04-08] MEDS: IBUPROFEN 600 MG TABLET PO (07:36)
[2024-04-08] MEDS: DOCUSATE SODIUM 100 MG CAPSULE PO (07:37)
[2024-04-08] MEDS: POLYSACCHARIDE IRON COMPLEX 150 MG CAPSULE PO (07:37)
--- NOTE | 2024-04-08 08:25 | PM.OBPNVD ---
OB - PN: Subj Subjective Date/time seen: 04/08/24 08:25 Patient comments: no complaints, pain well controlled, incisional pain, tolerating diet and flatus present OB - PN: Obj Data Labs 04/08/24 05:12 Labs: Laboratory Results - last 24 hr 04/07/24 04/08/24 16:54 05:12 WBC 8.8 RBC 4.15 L Hgb 11.0 L 9.7 L Hct 33.8 L 31.1 L MCV 81.4 MCH 26.5 MCHC 32.5 RDW 15.1 H Plt Count 241 MPV 11.8 H Immature Gran % (Auto) 0.5 Neut % (Auto) 78.6 H Lymph % (Auto) 11.4 L Kingsbury % (Auto) 8.4 Eos % (Auto) 0.6 Baso % (Auto) 0.5 Lymph # (Auto) 1.00 Kingsbury # (Auto) 0.7 H Eos # (Auto) 0.1 Baso # (Auto) 0.0 Abs Immat Gran (auto) 0.04 H Absolute Neuts (auto) 6.9 H Absolute Nucleated RBC 0.000 Nucleated RBC % 0.0 Urine Opiates Screen Negative Urine Methadone Screen Negative Ur Barbiturates Screen Negative Ur Phencyclidine Scrn Negative Ur Amphetamine Screen Positive A U Benzodiazepines Scrn Negative Urine Cocaine Screen Negative U Cannabinoids Screen Positive A RPR Non-reactive HIV 1&2 Ab/P24 Ag 4thGn Negative Blood Type A Positive Antibody Screen Negative OB - PN A/P Plan day: 1 Plan: routine care Comments: No problems, routine care Time Spent With Patient Time: Total time spent is greater than 50% in coordination of care (as documented) at patient's floor/unit and/or counseling patient: Exam Const: General: comfortable, no acute distress and alert Resp: Effort & Inspection: normal respiratory effort Auscultation: no crackles, no rales and no rhonchi Cardio: Rate: regular rate Heart sounds: no click, no murmurs and no rubs GI: Inspection: non-distended GI Palp: No Tenderness to palpation present (GI) Auscultation: normal bowel sounds Other: Incision - CDI Extrem: General: normal to inspection, no pedal edema and no calf tenderness
--- NOTE | 2024-04-08 10:22 | PC.NURSE ---
0900 RN checked to see if mother had fed baby, she had only fed 5mls @ 0715, mother instructed to go ahead and now feed infant, call if any assistance needed. 0925 RN in room, mother eating her breakfast but infant had not been fed, RN offered to feed baby a formula bottle, mother agreed. Mother advised to set an alarm on her phone and call if baby was not able to take at least 15mls per feed.
[2024-04-08 12:42] VITALS: BP 115/79; PULSE 82; RESP 16; TEMP 36.6; O2SAT 96
--- NOTE | 2024-04-08 13:06 | PCCCNOTE ---
Addendum entered by Henna San, CERTIFIED SUBSTANCE ABUSE COUNSELOR 04/08/24 16:12: Recvd phone call from DCFS Outing worker, Scott [phone], who reports initiating investigation. Addendum entered by Henna San, CERTIFIED SUBSTANCE ABUSE COUNSELOR 04/08/24 15:30: [facility] (w: [phone], c: [phone]) who reports Jewel, DCFS worker from Outing office, will make contact with the family here at the hospital. BALBIR Loza aware to not allow the baby to discharge with pt. Original Note: Recvd CC consult due to pt. not having custody of her two older children, + tox screen, and financial/homelessness. Met with pt. and YUDY Hardin at bedside. Pt's contact is [phone]. Pt. reports she lives with her grandfather in [place]. Pt. reports her two older daughters (4 yr old, 2 yr old) are being cared for by her Uncle, Roshan Barnes, in [facility]. Pt. reports sees her 4 year old every Monday, and her 2 year old every Monday. Pt. reports she has an open DCFS case due to her 2 yr old having a +Meth drug screen upon . Pt. reports she does not want Uncle Roshan to care for this 3rd baby; Pt. reports it has been the plan from the beginning of the that her sister (21 yr old) Yolande Gill, live in [facility], will care for baby girl. Pt's UDS + for Amphetamines and THC. Baby's UDS also + for Amphetamines and THC. Baby's umbilical cord drug screen pending. DCFS report made online - #[id number]. SDOH, homeless shelters, and resources provided to pt. BALBIR Loza aware of visit.
--- NOTE | 2024-04-08 16:44 | PC.NURSE ---
1540 Scott Hanley with DCFS, is here to see mother, her numbers are #[phone], cell#[phone], her ID was copied and placed on chart. Scott is ok with baby in the room with the mother and the father. Mother had told DCFS that her sister plans on adopting baby, care coordination also aware. When the baby is to be discharged, if baby goes to DCFS custody, then the hotline number should be called to alert them of the discharge. *Copied to baby's chart*
--- NOTE | 2024-04-08 17:12 | PC.NURSE ---
Chava Watson, RN license pending, is on orientation and this RN has checked her charting and assessments.
[2024-04-08 20:30] VITALS: BP 110/63; PULSE 84; RESP 16; TEMP 37.3; O2SAT 96
--- NOTE | 2024-04-08 22:12 | PC.NURSE ---
Pt has been sleeping in bed every time I have checked on her. Very hard to awaken and seems very out of it. I have not seen her care for the infant. FOB has been feeding .
--- NOTE | 2024-04-09 06:15 | PC.NURSE ---
Pt and FOB were heard yelling inside the pt room with baby. RN entered room and took the baby to the nursery. Parents continued to argue as she wanted FOB to stay and he wanted to leave. Security was called and FOB was asked to leave.
--- NOTE | 2024-04-09 06:44 | PC.NURSE ---
2330- fob fed infant while Pt slept. 0200- Pt asleep and in crib asleep. 0400- Pt asleep, difficult to awaken. Upon pt waking up I encouraged pt to feed infant and pt declined and requested this RN to feed . 0610- Entered room upon hearing yelling from outside door. Pt holding facing FOB and screaming. This RN requested pt hand over infant and transported to nursery at this time. Security called and assisted with deescalation of situation. FOB left floor at this time. Call made to Dr. See @[phone] for discharge order request and message left.
--- NOTE | 2024-04-09 07:31 | PC.NURSE ---
04/08/24 Kandice Watson RN license pending, is on orientation. Charting has been checked.
[2024-04-09 08:40] VITALS: BP 118/83; PULSE 82; RESP 16; TEMP 37.1; O2SAT 97
[2024-04-09] MEDS: POLYSACCHARIDE IRON COMPLEX 150 MG CAPSULE PO (08:57)
[2024-04-09] MEDS: DOCUSATE SODIUM 100 MG CAPSULE PO (08:58)
[2024-04-09] MEDS: MEASLES,MUMPS,RUBELLA VACCINE 0.5 ML VIAL SUB-Q (12:15)
[2024-04-09] MEDS: INFLUENZA TRIVALENT VACCINE 45 MCG/0.5 ML SYRINGE IM (12:18)
--- NOTE | 2024-04-09 12:38 | PM.OBDSVD ---
DS: Admitting Diagnosis Discharge Date 04/09/24 Admitting Diagnosis labor DS: Discharge Diagnosis Discharge Diagnosis (1) (spontaneous vaginal delivery): Code(s): O80 - Encounter for full-term uncomplicated delivery Status: Acute OB - DS: Summary OB Procedures : None OB Procedures Intrapartum: Spontaneous Vag Delivery OB Procedures: : None Peripartum Data Laceration Description: None Episiotomy description: None Time Spent with Patient Time attestation: Total time spent providing and/or coordinating discharge services: Discharge Plan Discharge Attending physician on discharge: Hardik See Discharging Clinician: Hardik See Patient Disposition: Home, Self-Care Activity: may shower, as tolerated and pelvic rest Diet: as tolerated Patient Instructions: Antibiotic Form Patient Language: Icelandic Stand Alone Forms: General Discharge Information Follow-up/Referrals: Negro Medina MD [Physician] - 4 Weeks Discharge Medications: New docusate sodium 100 mg Capsule 100 mg PO BID PRN (Reason: Constipation) Qty: 60 0RF ibuprofen 600 mg Tablet 600 mg PO Q6H PRN (Reason: Cramping) Qty: 30 0RF Continued famotidine [Pepcid] 20 mg tablet 20 mg PO BID Qty: 30 0RF One-A-Day -1 27 mg iron- 800 mcg-235 mg capsule 1 cap PO DAILY Date of admission: 04/07/24 16:30 Primary Care Provider: Manny Blackburn Admitting Provider: Negro Medina Attending physician on admission: Negro Medina Condition: Stable
--- NOTE | 2024-04-09 12:39 | P.PNOB_ITS ---
OB - PN: Subj Subjective Date/time seen: 04/09/24 12:39 Interval history: PPD#2 Pain controlled Voiding without issue Tolerating general diet Stable for discharge today OB - PN: Obj Data Labs 04/08/24 05:12 OB - PN A/P Assessment and Plan (1) (spontaneous vaginal delivery): Code(s): O80 - Encounter for full-term uncomplicated delivery Status: Acute Plan day: 2 Plan: routine care and discharge home Time Spent With Patient Time: Total time spent is greater than 50% in coordination of care (as documented) at patient's floor/unit and/or counseling patient: Review of Systems 2 Review of Systems: All systems reviewed & are unremarkable except as noted in HPI and below Exam 2 Const: General: comfortable and no acute distress O rientation/consciousness: patient oriented x3 Resp: Effort & Inspection: normal respiratory effort
--- NOTE | 2024-04-09 13:03 | PC.NURSE ---
On 04/09/24, the license pending nurse, Yojana Watson, provided care and completed [employer] documentation on this patient. I have reviewed the license pending nurse's documentation and agree with the findings.
--- NOTE | 2024-04-09 16:03 | PCCCNOTE ---
Received call from RN that pt. is discharging today. Pt. got into verbal argument with FOB and FOB was escorted out of the hospital by security. Pt. was informed she is discharging today. Baby will continue to be hospitalized. Left message for ongoing DCFS worker in [place], Zuleyma [phone] and left message. Also left message for [employer] DCFS table worker, Scott [phone] to inform of above information to. Received call from Scott who confirms that DCFS does plan to take custody of baby at discharge, is aware baby will not discharge today. Scott reports that pt. has an ongoing community case manager Rayna that will be responsible for finding placement for baby girl. Encouraged Scott to inform Marko with DCFS that pt. is discharging today and she will be allowed supervised visitation only with baby in the nursery. Scott also suggests seperate visitation between mother and father due to argument this morning, this was passed on to RN as well. Will follow
== END 2024-04-09 14:45 | disposition home or self-care (01) | DRG 560 ==
LOC: ANHLDR 17:53 → ANHOB2 04-09 12:02 → ANHLDR 04-10 09:01
PROVIDERS: Admitting Provider Obstetrics & Gynecology; PCP Family Medicine; Visit Provider Obstetrics & Gynecology
DX: O69.81X0 Labor and delivery complicated by cord around neck, without compression, not applicable or unspecified (principal); Z37.0 Single live birth; Z3A.39 39 weeks gestation of pregnancy; O70.1 Second degree perineal laceration during delivery; Z23 Encounter for immunization
CPT/HCPCS: 36415; 80307; 85014; 85018; 85025; 86592; 86703; 86850; 86900; 86901; 90471; 90656; 90710; A9270; G0008; G0432; J0290; J2590; J7120